=== PATIENT | male | born 1945 | race Caucasian/White ===

== ENCOUNTER 2024-06-07 23:51 | Emergency (ER) | payer MEDICARE ==
[~2024-06-07] VITALS: Ht 188 cm; Wt 90.7 kg
--- NOTE | 2024-06-08 00:21 | ERN ---
General Chief Complaint: Mechanical Fall Stated Complaint: FALL Time Seen by MD: 23:58 Source: patient History of Present Illness Initial Comments Patient fell from his bed today onto the floor and because of a history of back pain and previous falls family insisted he come to the emergency room. Did not hit his head he did not have loss of consciousness he is not on blood thinners Allergies: Coded Allergies: No Known Allergies (Unverified Allergy, Unknown, 06/07/24) Past Medical History Past Medical History: Other Medical History Other: LOW BACK PAIN Past Surgical History: None ROS Dictation Review of systems is negative there are no head pain no visual changes no lightheadedness no chest pain no shortness of breath no GI symptoms no symptoms no weakness or tenderness in any of his extremities. Skin is intact Physical Exam General Appearance: (+) no apparent distress Orientation: (+) oriented x 3 Eye: bilateral eye normal inspection, bilateral eye PERRL, bilateral eye EOMI Ear, Nose, Throat: (+) hearing grossly normal, (+) moist mucous membraine, (+) normal pharynx Neck: (+) normal inspection, (+) supple, (+) full range of motion Respiratory: (+) chest non-tender, (+) lungs clear, (+) well ventilated Heart: (+) regular, (+) no gallop Vascular: (+) no edema, (+) normal peripheral pulse Gastrointestinal: (+) soft, (+) non-tender, (+) no organomegaly, (+) bowel sound present Back Comment Patient has no back pain and no central spinal pain all the way from his neck down to the tip of his coccyx. Based on this exam the patient does not have a fracture anywhere along his vertebral chain. Extremities Comment Testing patient's sensation medial and laterally on his feet calves knees thighs both lower extremities are symmetrical and have sensation intact. MDM This patient can be medically cleared and discharged from the hospital emergency room. It was a low-level fall he did not hit his head he is not on blood thinners he has no mental status changes. His physical exam is negative. My big concern is that this is the 3rd fall the patient has had in the last year. He understands this he understands that he needs to work on conditioning and strengthening. There maybe some central spinal stenosis that is causing his lower extremity weakness however there was nothing emergent, i.e. no central cord syndrome and no decreased sensation anywhere. ED Course Vital Signs Date Time Temp Pulse Resp B/P (MAP) Pulse Ox O2 Delivery O2 Flow Rate FiO2 06/07/24 23:55 98.1 72 16 141/83 96 Room Air 0 DX & DISP Disposition: Discharge Departure Impression: Primary Impression: Ground-level fall Condition: Stable ARLEY ABERNATHY MD Jun 08, 2024 00:21
[2024-06-08 00:28] VITALS: BP 123/80; PULSE 71; RESP 12; TEMP 97.8; O2SAT 0
== END 2024-06-08 00:49 | disposition home or self-care (01) ==
LOC: EDH 06-08 00:04
DX: Z04.89 Encounter for examination and observation for other specified reasons (principal); W06.XXXA Fall from bed, initial encounter; Y93.89 Activity, other specified; Y92.89 Other specified places as the place of occurrence of the external cause; Y99.8 Other external cause status
CPT/HCPCS: 99283

== ENCOUNTER → 2024-09-04 | Outpatient (CLI) | payer MEDICARE ==
--- NOTE | 2024-09-05 09:51 | HMCIMG ---
EXAMINATION: SPECTRAL DOPPLER ULTRASOUND EXAMINATION OF THE RIGHT LOWER EXTREMITY VEINS. CLINICAL HISTORY: DVT. COMPARISON: None provided. TECHNIQUE: Real-time ultrasound scan of the veins of the right lower extremity with color Doppler flow, spectral waveform analysis and compression. FINDINGS: DEEP VEINS: The common femoral, mid and disstal superficial femoral, and popliteal veins are echolucent and compressible. There is normal color Doppler flow throughout. The visualized calf veins appear patent. The proximal superficial femoral vein is partially compressible. SUPERFICIAL VEINS: The greater saphenous veins is patent and compressible. SOFT TISSUES: No popliteal fossa cyst or other abnormalities. IMPRESSION: Partial deep vein thrombosis in the right proximal superficial femoral vein. No deep venous thrombosis evident in the remainder of right lower extremity. No superficial thrombophlebitis in the right lower extremity. /[place]
== END | disposition home or self-care (01) ==
LOC: RAH 08:57
PROVIDERS: ATTEND Internal Medicine
DX: I82.411 Acute embolism and thrombosis of right femoral vein (principal); I82.451 Acute embolism and thrombosis of right peroneal vein; D70.9 Neutropenia, unspecified
CPT/HCPCS: 93971

== ENCOUNTER 2024-09-21 12:21 | Inpatient (IN) | payer MEDICARE ==
[~2024-09-21] VITALS: Ht 188 cm; Wt 94.3 kg
[2024-09-21 14:17] LABS: NUCLEATED RED BLOOD CELLS 0.0 % (0.0-0.19); PLATELET COUNT (AUTO) 168 K/uL (130-400); RED BLOOD CELL COUNT(AUTO) 3.04 MIL/uL (4.50-6.20); RED CELL DISTRIBUTION WIDTH 12.3 % (11.0-15.5); WHITE BLOOD COUNT (AUTO) 5.7 K/uL (4.8-10.8)
[2024-09-21 14:29] LABS: INR 1.09 (0.85-1.15)
[2024-09-21 14:36] LABS: ASPARTATE AMINOTRANSFERASE 80.0 U/L (10-37); CREATININE 1.4 mg/dL (0.5-1.3); GLOMERULAR FILTR. RATE CALC 52.0 mL/min (>90); GLUCOSE,RANDOM 76.0 mg/dL (70-105); SODIUM SERUM 139.0 mmol/L (136-145); TOTAL PROTEIN, SERUM 7.2 g/dL (6.0-8.3); UREA NITROGEN, BLOOD 18.0 mg/dL (7-18)
--- NOTE | 2024-09-21 15:53 | NUR ---
DCP: HOME Pt currently lives with his partner Laura Parham [phone]. Pt does not have any insecurities with food, care home, and/or utilities. Pt has a walker and wheelchair that he uses to ambulate. Pt does not have home health or provider services. Pt states that he does have PT that goes to his home 2x a week. PCP is Dr. Jo Fontanez and uses [facility] for any RX needs. At [place] pt will want to go home and partner can assist with transportation. Addendum: 09/21/24 at 1558 by NIMA MULTANI Amended: Links added.
[2024-09-21 16:00] VITALS: BP 111/66; PULSE 74; RESP 13; TEMP 97.6
[2024-09-21] MEDS: MAGNESIUM 2GM PREMIX 50ML 50 ML IV SCH (16:30)
--- NOTE | 2024-09-21 19:19 | NUR ---
DR. LE AT BEDSIDE./DEVIKA
[2024-09-21] MEDS ORDERED: APIX2.5T PO (21:30)
[2024-09-21] MEDS ORDERED: FURO20TA4 PO (21:30)
[2024-09-21] MEDS ORDERED: BACL10TA PO (21:30)
[2024-09-21] MEDS ORDERED: FAMO40TA75 PO (21:30)
[2024-09-21] MEDS ORDERED: folic acid PO (21:30)
[2024-09-21] MEDS ORDERED: MECO10005 PO (21:30)
[2024-09-21] MEDS ORDERED: LISI2.5T13 PO (21:30)
[2024-09-21] MEDS: MAGNESIUM 2GM PREMIX 50ML 50 ML IV ONE (21:42)
[2024-09-21 22:46] VITALS: BP 158/96; PULSE 86; RESP 20; TEMP 98.2
[2024-09-21 23:00] VITALS: O2SAT 97
--- NOTE | 2024-09-22 02:51 | HMCIMG ---
EXAM: CR Chest, 1 view CLINICAL HISTORY: Congestive heart failure. COMPARISON: None provided. FINDINGS: The left CP angle is excluded from the image. No large pleural effusion or pneumothorax. The lungs show no infiltrates or other acute findings. Mild atherosclerotic aorta. The cardiomediastinal silhouette is within normal limits. No acute osseous abnormality. IMPRESSION: No acute cardiopulmonary process is evident. /[place]
[2024-09-22 04:00] VITALS: BP 136/76; PULSE 68; RESP 18; TEMP 97.7
[2024-09-22 08:00] VITALS: BP 112/66; PULSE 71; RESP 16; TEMP 98.5; O2SAT 98
[2024-09-22] MEDS: FAMOTIDINE 20MG TAB PO SCH (08:00)
[2024-09-22] MEDS: BACLOFEN 10 MG TABLET PO SCH (08:00)
[2024-09-22] MEDS: LISINOPRIL 2.5 MG TABLET PO SCH (08:00)
--- NOTE | 2024-09-22 09:27 | HP ---
DATE OF SERVICE: 09/21/2024. HISTORY AND PHYSICAL PRESENTING COMPLAINT: Bilateral leg swelling and lower extremitie pain. HISTORY OF PRESENT ILLNESS: A 79-year-old male with history of chronic back pain, obesity, skin cancer, and osteoarthritis who presented to the hospital from the doctor's office. The patient states he has been having chronic issue with back pain for a long time. Recently had radiofrequency procedure done in [place] and I have been seeing the patient since then. The pain is localized to the lumbar area, radiating to the lower extremities. The patient claims now he is almost wheelchair bound. Denies fever or chills. No fall or trauma. No frequent urinary retention. The patient denies nausea. Denies palpitations or orthopnea. The patient is unable to lie flat in bed. BNP was 122. Troponin is negative. The patient was found with magnesium of 0.80. PAST MEDICAL HISTORY: * Osteoarthritis. * Skin cancer. * Dyslipidemia. * GERD. * Chronic back pain. PAST SURGICAL HISTORY: * Right total hip arthroplasty. * Vasectomy. * Skin biopsy. * Lumbar laminectomy. * Radiofrequency procedure to the back. ALLERGIES: No known drug allergies. HOME MEDICATIONS: Reviewed. SOCIAL HISTORY: No alcohol, tobacco or illicit drug use. Lives with girlfriend. FAMILY HISTORY: Noncontributory. REVIEW OF SYSTEMS: CONSTITUTIONAL: No fever or chills. No weight loss or night sweats. EYES: No eye pain. No photophobia or diplopia. HENT: No sore throat. No rhinorrhea or earache. NECK: No neck pain. No neck swelling. RESPIRATORY: No cough. No hemoptysis or pleuritic pain. CARDIOVASCULAR: No chest pain. No palpitations or orthopnea. GASTROINTESTINAL: Denies nausea, vomiting, or abdominal pain. GENITOURINARY: No dysuria, urgency, or urinary frequency. CENTRAL NERVOUS SYSTEM: No headache, dyspnea, or slurred speech. PSYCHIATRY: No depression. No suicidal ideation. EXTREMITIES: Positive for bilateral lower extremities swelling and weakness. PHYSICAL EXAMINATION: GENERAL: Elderly male, awake. VITAL SIGNS: Temperature 97.4, pulse 74, respiratory rate 18, BP 129/81. EYES: No icterus. Pupils equal and reactive. HENT: No oral thrush seen. Moist oral mucosa. NECK: Supple. No JVD or thyromegaly. LUNGS: Good air entry. No rales. No rhonchi. CARDIOVASCULAR SYSTEM: S1 and S2 regular. No murmur heard. ABDOMEN: Obese, soft, nontender. Bowel sounds are present. CENTRAL NERVOUS SYSTEM: Awake, alert and oriented x 3. No focal deficits. EXTREMITIES: No rashes. No itchiness. LYMPHATIC: No peripheral lymphadenopathy. BACK: No deformity. No pressure ulcer. EXTREMITIES: Pitting edema of lower extremities. No cellulitis. LABORATORY DATA: BMP 122. Sodium 139, potassium 4.0, troponin 42. BUN 14, creatinine 1.4. Magnesium 0.80. WBC is 5.7, hemoglobin 11.4, platelets 168. ASSESSMENT: A 79-year-old male presented with back pain, leg swelling. CURRENT PROBLEMS: Include: * Possible lumbar radiculopathy. * Obesity. * Generalized weakness. * Lower extremity DVT PLAN: * Admit the patient to medical floor. * The patient will be placed on Lasix. * Obtain chest x-ray. * Obtain lumbar spine MRI. * Cardiology evaluation. * Lovenox for DVT prophylaxis. * Tylenol as need for fever or pain. * Tylenol as needed for pain and fever. * Zofran as needed for nausea and vomiting. TID: [id number] RECEIPT: [id number] MTDD
[2024-09-22 11:22] LABS: IMMATURE GRANULOCYTE ABSOLUTE 0.01 K/uL (0-1); NUCLEATED RED BLOOD CELLS 0.0 % (0.0-0.19); PLATELET COUNT (AUTO) 135 K/uL (130-400); RED BLOOD CELL COUNT(AUTO) 2.52 MIL/uL (4.50-6.20); RED CELL DISTRIBUTION WIDTH 12.0 % (11.0-15.5); WHITE BLOOD COUNT (AUTO) 3.9 K/uL (4.8-10.8)
[2024-09-22 11:25] LABS: CREATININE 1.2 mg/dL (0.5-1.3); GLOMERULAR FILTR. RATE CALC 62.0 mL/min (>90); GLUCOSE,RANDOM 124.0 mg/dL (70-105); SODIUM SERUM 140.0 mmol/L (136-145); UREA NITROGEN, BLOOD 21.0 mg/dL (7-18)
[2024-09-22 12:00] VITALS: BP 107/66; PULSE 71; RESP 18; TEMP 98.4
--- NOTE | 2024-09-22 12:35 | HMCSR ---
APPROVED REPORT EXAM: Two-dimensional and M-mode echocardiogram with Doppler and color Doppler. INDICATION ICD: Congestive heart failure 2D Dimensions RVDd4.4 cmLVEF(%)54.8 (>50%)LVED Vol(simp.)83.0 mL IVSd1.2 (0.7-1.1cm)FS(%)28 %LVES Vol(simp.)39.0 mL LVDd4.8 (3.8-5.6cm)LA (2D)4.9 (1.6-4.0cm)LVEF(%, simp.)53 % PWd1.3 (0.7-1.1cm)Ao Root(2D)3.7 (2.0-3.7cm)LA ESV INDEX (BP)43.48 mL/m2 IVSs1.3 cmLVOT diam2.6 (1.8-2.4cm) LVDs3.4 (2.5-4.0cm) PWs1.8 cm Deformation Strain Apical 4-13.7 % Apical 2-11.6 % Apical 3-19.7 % Global Strain-15.0 % M-Mode Dimensions EPSS0.7 cm LA (MM)4.6 (1.6-4.0cm) Ao Root(MM)3.3 (2.0-3.7cm) Aortic Valve AoV Vmax1.2 m/Kobi Peak GR5.9 mmHgLVOT Vmax1.0 m/s AoV VTI0.2 mAo Mean GR3.2 mmHgLVOT VTI0.20 m LARRY (VMAX)4.34 cm2AVA (VTI) 6.0 cm2 Mitral Valve MV E Vmax54.4 cm/sDECEL Qzcg391 ms MV A Vmax74.7 cm/sP 1/2 T48 ms E/A ratio0.7MVA (PHT)4.6 cm2 TDI E/E' Medial8.8E/E' Lateral4.5 Medial E' Peak V6.19 cm/sLateral E' Peak V12.14 cm/s Pulmonary Valve PV Vmax1.2 m/sPV VTI0.19 mPV Mean GR3.3 mmHg PV Peak GR6.1 mmHg Tricuspid Valve TR Vmax1.1 m/sRVSP4.6 mmHg TR Peak GR4.6 mmHg Left Ventricle The left ventricle is normal size. GLS -15.0% Septal bounce is present. Mild left ventricular hypertr ophy LVEF is 50-55%. Diastolic function is indeterminate. Right Ventricle The right ventricle is normal size. The right ventricular systolic function is normal. Atria The left atrium is moderately dilated. The right atrium size is normal. Aortic Valve Aortic valve is trileaflet and calcified however opens well. Trace aortic regurgitation is present. T here is no aortic valvular stenosis. Mitral Valve The mitral valve is normal in structure. There is no mitral valve regurgitation noted. There is no mi tral valve stenosis. Tricuspid Valve The tricuspid valve is normal in structure. There is trace of tricuspid valve regurgitation noted. Pulmonic Valve Pulmonic valve is not well visualized. There is trivial pulmonic valvular regurgitation. Great Vessels The aortic root is normal in size. IVC is not well visualized. Pericardium There is no pericardial effusion. Other Information Quality : Technically difficult study due to body habitus Rhythm : NSR Conclusion LVEF is 50-55%. Diastolic function is indeterminate. Septal bounce is present. Mild left ventricular hypertrophy Left atrium is moderately dilated. Aortic valve is trileaflet and calcified however opens well.
[2024-09-22 16:00] VITALS: BP 105/70; PULSE 81; RESP 18; TEMP 98.4
--- NOTE | 2024-09-22 17:47 | PN ---
INFECTIOUS DISEASE PROGRESS NOTE Date of Service: Sep 22, 2024 SUBJECTIVE: This is a 79-year-old male patient with past medical history of osteoarthritis and chronic back pain who was sent over from his PCP's office for evaluation of bilateral lower extremity swelling, pain and redness as well as lower back pain. On admission patient had a magnesium level of 0.80 which was replaced and is now 2.20. During rounding today patient is pending an MRI of the lumbar spine. A 2D echo showed a LVEF of 50-55%. Patient is afebrile, temperature is 98.4. Discussed with patient that he will possibly need temporary rehab placement when ready to discharge and patient verbalized understanding. PHYSICAL EXAM EYES: Anicteric. Pupils equal and reactive. HENT: No oral thrush seen, moist Oral mucosa. NECK: Supple, no JVD or thyromegaly. LUNGS: Good air entry. No rales, no rhonchi. CARDIOVASCULAR: S1, S2 regular. No murmur heard. ABDOMEN: Soft, non tender, bowel sounds present, no organomegaly. CENTRAL NERVOUS SYSTEM: Awake, alert, oriented x 3. SKIN: No rashes, no swelling. LYMPHATICS: No peripheral lymphadenopathy MUSCULOSKELETAL: No joint swelling, erythema or tenderness. EXTREMITIES: No cyanosis or clubbing. Bilateral lower extremity edema and cellulitis. BACK: No deformity, no pressure ulcer. Chronic back pain. GENITOURINARY: No dysuria or hematuria Vital Sign (Last 12 Hours) 09/22/24 09/22/24 09/22/24 08:00 08:00 12:00 Temp 98.4 98.4 Pulse 71 71 Resp 16 18 B/P (MAP) 112/66 107/66 Pulse Ox 99 98 96 O2 Delivery Room Air Room Air* Room Air O2 Flow Rate 0 FiO2 21 Intake & Output (last 24hrs) 09/21/24 09/21/24 09/22/24 15:00 23:00 07:00 Output Total 350 ml 250 ml Balance -350 ml -250 ml LABS: Laboratory: Test 09/22/24 11:01 09/21/24 14:10 Range/Units White Blood Count 3.9 #L 4.8-10.8 K/uL Red Blood Count 2.52 L 4.50-6.20 MIL/uL Hemoglobin 9.6 L 14.0-18.0 g/dL Hematocrit 27.5 L 42-54 % Mean Corpuscular Volume 109.1 H 79-99 fL Mean Corpuscular Hemoglobin 38.1 H 27.0-33.0 pg Mean Corpuscular Hemoglobin Concent 34.9 32.0-36.0 g/dL Red Cell Distribution Width 12.0 11.0-15.5 % Platelet Count 135 130-400 K/uL Mean Platelet Volume 10.9 H 7.5-10.5 fL Immature Granulocyte % (Auto) 0.3 0-1 % Neutrophils (%) (Auto) 70.1 40.0-77.0 % Lymphocytes (%) (Auto) 19.8 L 21.0-51.0 % Monocytes (%) (Auto) 9.5 3.0-13.0 % Eosinophils (%) (Auto) 0.0 0.0-8.0 % Basophils (%) (Auto) 0.3 0.0-5.0 % Neutrophils # (Auto) 2.7 1.8-7.7 K/uL Lymphocytes # (Auto) 0.8 L 1.0-4.8 K/uL Monocytes # (Auto) 0.4 0.1-1.0 K/uL Eosinophils # (Auto) 0.00 0.00-0.70 K/uL Basophils # (Auto) 0.01 0.00-0.20 K/uL Absolute Immature Granulocyte (auto 0.01 0-1 K/uL Nucleated Red Blood Cells 0.0 0.0-0.19 % Sodium Level 140 136-145 mmol/L Potassium Level 4.0 3.5-5.1 mmol/L Chloride Level 102 101-111 mmol/L Carbon Dioxide Level 31 21-32 mmol/L Blood Urea Nitrogen 21 H 7-18 mg/dL Creatinine 1.2 0.5-1.3 mg/dL Glomerular Filtration Rate Calc 62 >90 mL/min Random Glucose 124 #H 70-105 mg/dL Total Calcium 8.6 8.5-10.1 mg/dL Magnesium Level 2.20 1.80-2.40 mg/dL Red Blood Cell Morphology See comments Prothrombin Time 11.5 9.6-11.6 SEC Prothromb Time International Ratio 1.09 0.85-1.15 Activated Partial Thromboplast Time 28.0 26.3-35.5 SEC Total Bilirubin 0.8 0.2-1.0 mg/dL Aspartate Amino Transf (AST/SGOT) 80 H 10-37 U/L Alanine Aminotransferase (ALT/SGPT) 74 12-78 U/L Alkaline Phosphatase 114 50-136 U/L Troponin I High Sensitivity 42 4-75 ng/L B-Type Natriuretic Peptide 122 H 0-100 pg/mL Total Protein 7.2 6.0-8.3 g/dL Albumin 3.7 3.5-5.0 g/dL ASSESSMENT: Bilateral lower extremity edema with cellulitis. Possible lumbar radiculopathy. Obesity. History of chronic back pain. PLAN: Obtain bilateral venous Dopplers. Pending MRI of the lumbar spine. Continue DVT prophylaxis. Continue diuretics. Continue pain management. We will monitor electrolytes. Will possibly need temporary rehab placement when ready to discharge This case was reviewed and discussed with my supervising physician and the above assessment and plan was formulated and agreed upon. ATTESTATION BY PHYSICIAN I have seen and examined the patient. I reviewed the documentation, medical decision making, and treatment plan as noted by the mid-level provider above. I agree with the findings and plan of care. TAWANDA LE MD, [facility] Sep 22, 2024 17:47
--- NOTE | 2024-09-22 19:39 | CONS ---
CARDIOLOGY CONSULT HPI 79-year-old male with history of chronic back pain, obesity, skin cancer, and osteoarthritis recent dvt to right leg about 3 weeks ago was started on eliquis by hematology The patient states he has been having chronic issue with back pain for a long time. Recently had radiofrequency procedure done in [place] and I have been seeing the patient since then. The pain is localized to the lumbar area, radiating to the lower extremities. The patient claims now he is almost wheelchair bound. we have been consulted for conser of chf pmhx: as mentions above social history no tobacco no alcohol use surgical history non contributory Vitals/Labs ROS: General: No malaise or fever. Neurological: No fainting episodes or seizures. HEENT: No nasal congestion or nasal secretion. Cardiac: No chest pain or palpitations, +bilateral lower ext edema . Gastrointestinal: No vomiting or diarrhea. Skin: No rashes or lesions. Hematological: No bruises or bleeding. Musculoskeletal: No joint pains or arthralgias +back pain . Psychiatric: No depression or panic attacks. PE EYES: Anicteric. Pupils equal and reactive. HENT: No oral thrush seen, moist Oral mucosa. NECK: Supple, no JVD or thyromegaly. LUNGS: Good air entry. No rales, no rhonchi. CARDIOVASCULAR: S1, S2 regular. No murmur heard. ABDOMEN: Soft, non tender, bowel sounds present, no organomegaly. CENTRAL NERVOUS SYSTEM: Awake, alert, oriented x 3. SKIN: No rashes, no swelling. LYMPHATICS: No peripheral lymphadenopathy MUSCULOSKELETAL: No joint swelling, erythema or tenderness. EXTREMITIES: No cyanosis or clubbing. Bilateral lower extremity edema and cellulitis. BACK: No deformity, no pressure ulcer. Chronic back pain. GENITOURINARY: No dysuria or hematuria Vital Signs Date Time Temp Pulse Resp B/P (MAP) Pulse Ox O2 Delivery O2 Flow Rate FiO2 09/22/24 16:00 98.4 81 18 105/70 95 Room Air 09/22/24 08:00 0 21 Laboratory Tests 09/22/24 11:01 Allergies: Coded Allergies: No Known Allergies (Unverified Allergy, Unknown, 06/07/24) Medications Current Medications Magnesium Sulfate 50 ml @ 0 mls/hr PROTOCOL IV Last administered on 09/21/24at 18:53; Start 09/21/24 at 16:30; Stop 10/21/24 at 16:29 Tramadol HCl 50 mg Q6H PRN PO Last administered on 09/22/24at 17:42; Start 09/21/24 at 20:00; Stop 09/26/24 at 19:59 Docusate Sodium 100 mg BID PO Last administered on 09/22/24at 08:00; Start 09/21/24 at 21:00; Stop 09/28/24 at 21:00 Magnesium Sulfate 50 ml @ 0 mls/hr PROTOCOL ONCE IV Last administered on 09/21/24at 21:42; Start 09/21/24 at 20:00; Stop 09/21/24 at 20:02; Status DC Ondansetron HCl 4 mg Q6H PRN IVP Last administered on 09/22/24at 08:00; Start 09/21/24 at 23:30; Stop 10/21/24 at 23:29 Apixaban 2.5 mg BID PO Last administered on 09/22/24at 08:00; Start 09/22/24 at 09:00; Stop 10/22/24 at 08:59 Baclofen 10 mg BID PO Last administered on 09/22/24at 08:00; Start 09/22/24 at 09:00; Stop 10/22/24 at 08:59 Famotidine 40 mg DAILY PO Last administered on 09/22/24at 08:00; Start 09/22/24 at 09:00; Stop 10/22/24 at 08:59 Furosemide 20 mg BID PO Last administered on 09/22/24at 08:00; Start 09/22/24 at 09:00; Stop 10/22/24 at 08:59 Lisinopril 2.5 mg DAILY PO Last administered on 09/22/24at 08:00; Start 09/22/24 at 09:00; Stop 10/22/24 at 08:59 ASSESSMENT: 1. concern for heart failure 2. 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 recent dvt to right leg 5. chronic [facility] pain PLAN: From a cardiovascular standpoint we will do echo to assess pt ef venous us was order to assess the dvt at this time no indication for cadx work up if ef on echo shows lv dysfunction we will reconsider the same. further recommendations will be bases on how the patient does and the results above DAT HOPKINS PAC Sep 22, 2024 19:39
[2024-09-22 20:19] VITALS: BP 114/71; PULSE 71; RESP 20; TEMP 98.3
--- NOTE | 2024-09-22 20:53 | HMCIMG ---
EXAM: MR Lumbar Spine Without Intravenous Contrast. CLINICAL HISTORY: Low back pain. TECHNIQUE: Magnetic resonance images of the lumbar spine in multiple planes. CONTRAST: None. COMPARISON: None. FINDINGS: For this examination, spinal levels were labeled assuming five non-rib bearing, lumbar-type vertebrae with the inferior labeled L5. Suspected right L3 laminectomy. No acute fracture. Severe levoscoliosis. Straightening of the expected lumbar lordosis reflects paraspinal muscle spasm. Multilevel spondylosis is evident by marginal osteophytes and facet joint arthropathy. Multilevel disc desiccation and degenerative disc height reduction noted, more pronounced at the L5-S1 level. Normal vertebral body heights. Modic type II changes in the contiguous endplates at the L1-L2 and L2-L3 levels. Conus medullaris terminates at the T12 level. No abnormal epidural masses. Moderate atrophy of the paraspinal muscles. Mild subcutaneous edema in the lower back. Large simple cortical cysts noted in bilateral kidneys. Individual spinal levels are described as follows: T12-L1: 4 mm left predominant disc osteophyte complex bulge causing mild indentation on the anterior thecal sac. No neural foraminal or lateral recess stenosis. L1-L2: 4 mm left predominant disc osteophyte complex bulge causing mild indentation on the anterior thecal sac. No neural foraminal or lateral recess stenosis. L2-L3: 4 mm right predominant disc osteophyte complex bulge and facet joint arthropathy causing mild indentation on the anterior thecal sac and mild right foraminal narrowing. No lateral recess stenosis. L3-L4: 5 mm right predominant disc osteophyte complex bulge and facet joint arthropathy causing mild indentation on the anterior thecal sac and moderate right foraminal narrowing with compression of the exiting right L3 nerve root. No lateral recess stenosis. L4-L5: 5 mm left predominant disc osteophyte complex bulge and facet joint arthropathy causing mild indentation on the anterior thecal sac, mild bilateral lateral recess narrowing with abutment of the traversing left L5 nerve root, and mild left foraminal narrowing. L5-S1: 5 mm left predominant disc osteophyte complex bulge and facet joint arthropathy causing mild indentation on the anterior thecal sac, mild left lateral recess narrowing with abutment of the traversing left S1 nerve root, and mild left foraminal narrowing with abutment of the exiting left L5 nerve root. IMPRESSION: Suspected right L3 laminectomy. Recommend correlation with the history. Severe levoscoliosis. Straightening of the expected lumbar lordosis reflects paraspinal muscle spasm. Moderate to severe multilevel spondylosis and degenerative disc changes. Modic type II changes in the contiguous endplates at the L1-L2 and L2-L3 levels. Mild indentation on the anterior thecal sac and moderate right foraminal narrowing with compression of the exiting right L3 nerve root at the L3-L4 level. Mild indentation on the anterior thecal sac, mild bilateral lateral recess narrowing with abutment of the traversing left L5 nerve root, and mild left foraminal narrowing at the L4-L5 level. Mild indentation on the anterior thecal sac, mild left lateral recess narrowing with abutment of the traversing left S1 nerve root, and mild left foraminal narrowing with abutment of the exiting left L5 nerve root at the L5-S1 level. /[place]
[2024-09-23] VITALS (8 sets, daily range): BP systolic 113–133; BP diastolic 66–79; PULSE 60–72; RESP 16–20; TEMP 97.7–98.5; O2SAT 96–100
--- NOTE | 2024-09-23 07:02 | HMCIMG ---
EXAMINATION: SPECTRAL DOPPLER ULTRASOUND EXAMINATION OF THE BILATERAL LOWER EXTREMITY VEINS. CLINICAL HISTORY: Right leg DVT, on blood thinners. COMPARISON: Bilateral lower extremity venous doppler dated 09/04/2024. TECHNIQUE: Real-time ultrasound scan of the veins of the bilateral lower extremity with color Doppler flow, spectral waveform analysis and compression. FINDINGS: DEEP VEINS: Right: The common femoral and mid and distal superficial femoral veins are echolucent and compressible. There is normal color Doppler flow throughout. The visualized calf veins appear patent. The right proximal superficial femoral and popliteal veins are partially compressible with echogenic content. There is flow on augmentation. Left: The common femoral, superficial femoral, and popliteal veins are echolucent and compressible. There is normal color Doppler flow throughout. The visualized calf veins appear patent. SUPERFICIAL VEINS: The greater saphenous veins are patent and compressible. SOFT TISSUES: No popliteal fossa cyst or other abnormalities. IMPRESSION: Partial deep vein thrombosis in the right proximal superficial femoral and popliteal veins. In the prior ultrasound, there was thrombosis only in the superficial femoral vein. Interval appearance of partial thrombosis in the popliteal vein. No deep venous thrombosis evident in the reminder of the bilateral lower extremity.No superficial thrombophlebitis in the bilateral lower extremity. /[place]
--- NOTE | 2024-09-23 15:15 | PN ---
INFECTIOUS DISEASE PROGRESS NOTE Date of Service: Sep 23, 2024 SUBJECTIVE: This 79 year old male patient is being seen today at bedside. Awake, alert and oriented x3. With no fever or chills, no nausea or vomiting. MRI was reviewed and went over results with patient and family. Consult to [facility] has been made for recommendations. Orders given for patient to be evaluated by PT today. Patient at this time denies chest pain or shortness of breath. Denies palpitation. No dysuria or hematuria. We continue to follow patient. PHYSICAL EXAM EYES: Anicteric. Pupils equal and reactive. HENT: No oral thrush seen, moist Oral mucosa. NECK: Supple, no JVD or thyromegaly. LUNGS: Good air entry. No rales, no rhonchi. CARDIOVASCULAR: S1, S2 regular. No murmur heard. ABDOMEN: Soft, non tender, bowel sounds present, no organomegaly. CENTRAL NERVOUS SYSTEM: Awake, alert, oriented x 3. SKIN: No rashes, no swelling. LYMPHATICS: No peripheral lymphadenopathy MUSCULOSKELETAL: No joint swelling, erythema or tenderness. EXTREMITIES: No cyanosis or clubbing. Bilateral lower extremity edema and cellulitis. BACK: No deformity, no pressure ulcer. Chronic back pain. GENITOURINARY: No dysuria or hematuria Vital Sign (Last 12 Hours) 09/23/24 09/23/24 09/23/24 09/23/24 04:05 07:53 08:11 11:34 Temp 97.9 97.7 97.9 Pulse 63 64 60 Resp 18 20 20 B/P (MAP) 133/79 129/78 118/76 Pulse Ox 95 100 100 100 O2 Delivery Room Air Room Air Room Air* Room Air O2 Flow Rate 0 FiO2 21 Intake & Output (last 24hrs) 09/22/24 09/22/24 09/23/24 15:00 23:00 07:00 Intake Total 120 ml Output Total 200 ml Balance -80 ml LABS: Laboratory: Test 09/22/24 11:01 Range/Units White Blood Count 3.9 #L 4.8-10.8 K/uL Red Blood Count 2.52 L 4.50-6.20 MIL/uL Hemoglobin 9.6 L 14.0-18.0 g/dL Hematocrit 27.5 L 42-54 % Mean Corpuscular Volume 109.1 H 79-99 fL Mean Corpuscular Hemoglobin 38.1 H 27.0-33.0 pg Mean Corpuscular Hemoglobin Concent 34.9 32.0-36.0 g/dL Red Cell Distribution Width 12.0 11.0-15.5 % Platelet Count 135 130-400 K/uL Mean Platelet Volume 10.9 H 7.5-10.5 fL Immature Granulocyte % (Auto) 0.3 0-1 % Neutrophils (%) (Auto) 70.1 40.0-77.0 % Lymphocytes (%) (Auto) 19.8 L 21.0-51.0 % Monocytes (%) (Auto) 9.5 3.0-13.0 % Eosinophils (%) (Auto) 0.0 0.0-8.0 % Basophils (%) (Auto) 0.3 0.0-5.0 % Neutrophils # (Auto) 2.7 1.8-7.7 K/uL Lymphocytes # (Auto) 0.8 L 1.0-4.8 K/uL Monocytes # (Auto) 0.4 0.1-1.0 K/uL Eosinophils # (Auto) 0.00 0.00-0.70 K/uL Basophils # (Auto) 0.01 0.00-0.20 K/uL Absolute Immature Granulocyte (auto 0.01 0-1 K/uL Nucleated Red Blood Cells 0.0 0.0-0.19 % Sodium Level 140 136-145 mmol/L Potassium Level 4.0 3.5-5.1 mmol/L Chloride Level 102 101-111 mmol/L Carbon Dioxide Level 31 21-32 mmol/L Blood Urea Nitrogen 21 H 7-18 mg/dL Creatinine 1.2 0.5-1.3 mg/dL Glomerular Filtration Rate Calc 62 >90 mL/min Random Glucose 124 #H 70-105 mg/dL Total Calcium 8.6 8.5-10.1 mg/dL Magnesium Level 2.20 1.80-2.40 mg/dL COMPARISON: None. FINDINGS: For this examination, spinal levels were labeled assuming five non-rib bearing, lumbar-type vertebrae with the inferior labeled L5. Suspected right L3 laminectomy. No acute fracture. Severe levoscoliosis. Straightening of the expected lumbar lordosis reflects paraspinal muscle spasm. Multilevel spondylosis is evident by marginal osteophytes and facet joint arthropathy. Multilevel disc desiccation and degenerative disc height reduction noted, more pronounced at the L5-S1 level. Normal vertebral body heights. Modic type II changes in the contiguous endplates at the L1-L2 and L2-L3 levels. Conus medullaris terminates at the T12 level. No abnormal epidural masses. Moderate atrophy of the paraspinal muscles. Mild subcutaneous edema in the lower back. Large simple cortical cysts noted in bilateral kidneys. Individual spinal levels are described as follows: T12-L1: 4 mm left predominant disc osteophyte complex bulge causing mild indentation on the anterior thecal sac. No neural foraminal or lateral recess stenosis. L1-L2: 4 mm left predominant disc osteophyte complex bulge causing mild indentation on the anterior thecal sac. No neural foraminal or lateral recess stenosis. L2-L3: 4 mm right predominant disc osteophyte complex bulge and facet joint arthropathy causing mild indentation on the anterior thecal sac and mild right foraminal narrowing. No lateral recess stenosis. L3-L4: 5 mm right predominant disc osteophyte complex bulge and facet joint arthropathy causing mild indentation on the anterior thecal sac and moderate right foraminal narrowing with compression of the exiting right L3 nerve root. No lateral recess stenosis. L4-L5: 5 mm left predominant disc osteophyte complex bulge and facet joint arthropathy causing mild indentation on the anterior thecal sac, mild bilateral lateral recess narrowing with abutment of the traversing left L5 nerve root, and mild left foraminal narrowing. L5-S1: 5 mm left predominant disc osteophyte complex bulge and facet joint arthropathy causing mild indentation on the anterior thecal sac, mild left lateral recess narrowing with abutment of the traversing left S1 nerve root, and mild left foraminal narrowing with abutment of the exiting left L5 nerve root. IMPRESSION: Suspected right L3 laminectomy. Recommend correlation with the history. Severe levoscoliosis. Straightening of the expected lumbar lordosis reflects paraspinal muscle spasm. Moderate to severe multilevel spondylosis and degenerative disc changes. Modic type II changes in the contiguous endplates at the L1-L2 and L2-L3 levels. Mild indentation on the anterior thecal sac and moderate right foraminal narrowing with compression of the exiting right L3 nerve root at the L3-L4 level. Mild indentation on the anterior thecal sac, mild bilateral lateral recess narrowing with abutment of the traversing left L5 nerve root, and mild left foraminal narrowing at the L4-L5 level. Mild indentation on the anterior thecal sac, mild left lateral recess narrowing with abutment of the traversing left S1 nerve root, and mild left foraminal narrowing with abutment of the exiting left L5 nerve root at the L5-S1 level. /[place] EXAMINATION: SPECTRAL DOPPLER ULTRASOUND EXAMINATION OF THE BILATERAL LOWER EXTREMITY VEINS. CLINICAL HISTORY: Right leg DVT, on blood thinners. COMPARISON: Bilateral lower extremity venous doppler dated 09/04/2024. TECHNIQUE: Real-time ultrasound scan of the veins of the bilateral lower extremity with color Doppler flow, spectral waveform analysis and compression. FINDINGS: DEEP VEINS: Right: The common femoral and mid and distal superficial femoral veins are echolucent and compressible. There is normal color Doppler flow throughout. The visualized calf veins appear patent. The right proximal superficial femoral and popliteal veins are partially compressible with echogenic content. There is flow on augmentation. Left: The common femoral, superficial femoral, and popliteal veins are echolucent and compressible. There is normal color Doppler flow throughout. The visualized calf veins appear patent. SUPERFICIAL VEINS: The greater saphenous veins are patent and compressible. SOFT TISSUES: No popliteal fossa cyst or other abnormalities. IMPRESSION: Partial deep vein thrombosis in the right proximal superficial femoral and popliteal veins. In the prior ultrasound, there was thrombosis only in the superficial femoral vein. Interval appearance of partial thrombosis in the popliteal vein. No deep venous thrombosis evident in the reminder of the bilateral lower extremity.No superficial thrombophlebitis in the bilateral lower extremity. ASSESSMENT: Bilateral lower extremity edema with cellulitis. Possible lumbar radiculopathy. Obesity. History of chronic back pain. PLAN: Patient be seen by PT Consult neurosurgery Consult hematology from prior hx of dvt Continue DVT prophylaxis. Continue diuretics. Continue pain management. We will monitor electrolytes. Will possibly need temporary rehab placement when ready to discharge This case was reviewed and discussed with my supervising physician and the above assessment and plan was formulated and agreed upon. SHAI MONDRAGON ENVIRONMENTAL AIDE Sep 23, 2024 15:14
--- NOTE | 2024-09-23 17:59 | CONS ---
REASON FOR CONSULTATION: Right lower extremity DVT. CONSULT REQUESTED BY: Alon Morales MD HISTORY OF PRESENT ILLNESS: This is a 79-year-old male with multiple medical problems and those include severe back problems for which he has undergone previous surgery and recently radiofrequency ablation. They came to the hospital for that and also due to lower extremity edema bilaterally. The patient has been just recently diagnosed with DVT by Dr. Urban. He is taking Eliquis. This is the reason why I have been consulted. PAST MEDICAL HISTORY: Obesity, skin cancer, osteoarthritis, hyperlipidemia, GERD, spondylosis, severe back problems. PAST SURGICAL HISTORY: Right hip arthroplasty, vasectomy, skin biopsy, lumbar laminectomy, radiofrequency ablation of the back. SOCIAL HISTORY: The patient lives with his family. He does not smoke or drink. He in fact lives with a girlfriend. ALLERGIES: No drug allergies. REVIEW OF SYSTEMS: GENERAL: Energy is fair. Denies fatigue or weakness. No chills, no fever, no anorexia. GASTROINTESTINAL: No nausea, no vomiting, no diarrhea, no constipation. RESPIRATORY: No shortness of breath, no cough. CARDIOVASCULAR: No chest pain, no palpitations. ENDOCRINE: No polyuria, no polydipsia, no facial swelling, no weight gain. NEUROLOGIC: Severe back pain as described above. PHYSICAL EXAMINATION: VITAL SIGNS: Temperature 97.9, heart rate 60, respiratory rate 20, blood pressure 118/76. GENERAL: The patient is in no acute distress. All examination is normal. LUNGS: Clear to auscultation bilaterally. HEART: Regular rate. No murmurs. ABDOMEN: Bowel sounds positive, soft, nontender. No masses. EXTREMITIES: Mild edema 1+. No palpable lymph nodes. DOPPLER ULTRASOUND OF LOWER EXTREMITIES: Impression: Partial deep vein thrombosis in the right proximal superficial femoral and popliteal veins. In the prior ultrasound, there was thrombosis only in the superficial femoral vein, interval appearance of partial thrombosis in the popliteal vein. No deep venous thrombosis evident in the remainder of the bilateral lower extremities. No superficial thrombophlebitis in bilateral lower extremities. IMPRESSION: * This patient has the recent diagnosis approximately 10 days ago of right lower extremity DVT. The risk factors for that are several, but mostly is the relative immobility due to his severe back problems, but also obesity and age are risk factors. * He started anticoagulation with Eliquis and there is concern of progression of the clot. * At this time, I noticed he is having subtherapeutic dose of Eliquis 2.5 mg q.12 hours. He thought he was taking 5 mg, and in fact, he previously took 10 mg b.i.d. for 7 days. PLAN: The findings were discussed with the patient and the girlfriend. I placed an order for the Eliquis dose to be increased to 5 mg q.12 hours. TID: [id number] RECEIPT: [id number]
[2024-09-24] VITALS (9 sets, daily range): BP systolic 112–149; BP diastolic 65–88; PULSE 66–90; RESP 17–19; TEMP 97.7–98.6; O2SAT 96
--- NOTE | 2024-09-24 13:53 | PN ---
SUBJECTIVE: The patient is feeling fine today. Denies any complaints of chest pain or shortness of breath. OBJECTIVE: VITAL SIGNS: Heart rate is 70, blood pressure is 120/60. HEENT: Normocephalic and atraumatic. Pupils are equal and reactive to light. NECK: Supple. No thyromegaly. No carotid bruits. No masses. LUNGS: Clear to percussion and auscultation. CARDIOVASCULAR: Peripheral pulses are diminished. No groin bruit. No abdominal bruit. No carotid bruit or JVD. S1 and S2 heard. No S3, no S4. No murmurs, no rubs, no adventitious sounds. ABDOMEN: Benign. CENTRAL NERVOUS SYSTEMS: Nonfocal exam. EXTREMITIES: No pitting edema. LABORATORY DATA: Labs have all been reviewed. DIAGNOSTIC STUDIES: Echocardiogram reveals normal ejection fraction with diastolic dysfunction. A venous Doppler reveals right SFA thrombosis. FINAL IMPRESSION: * Diastolic CHF, which is now resolved. He is on p.o. Lasix. * Normal ejection fraction. * DVT, right lower extremity. The patient is on full dose anticoagulation, oral. RECOMMENDATIONS: * We will continue the same medications. His blood pressure has been controlled. He is on Lasix p.o. * I will also schedule Lexiscan on him for tomorrow. Further recommendations will be based on results of the above. TID: [id number] RECEIPT: [id number]
[2024-09-25 03:40] VITALS: BP 125/94; PULSE 73; RESP 18; TEMP 97.9
[2024-09-25 05:42] LABS: CREATININE 1.1 mg/dL (0.5-1.3); GLOMERULAR FILTR. RATE CALC 69.0 mL/min (>90); GLUCOSE,RANDOM 78.0 mg/dL (70-105); SODIUM SERUM 139.0 mmol/L (136-145); UREA NITROGEN, BLOOD 14.0 mg/dL (7-18)
[2024-09-25 06:05] LABS: NUCLEATED RED BLOOD CELLS 0.0 % (0.0-0.19); PLATELET COUNT (AUTO) 117.0 K/uL (130-400); RED BLOOD CELL COUNT(AUTO) 2.7 MIL/uL (4.50-6.20); RED CELL DISTRIBUTION WIDTH 12.2 % (11.0-15.5); WHITE BLOOD COUNT (AUTO) 3.3 K/uL (4.8-10.8)
[2024-09-25] MEDS: PoTASSium chloRIDE 20MEQ ER 20 MEQ ERTAB PO PRN (06:22)
[2024-09-25 08:00] VITALS: O2SAT 100
[2024-09-25 08:05] VITALS: BP 139/75; PULSE 64; RESP 20; TEMP 98.4
--- NOTE | 2024-09-25 08:45 | HMCIMG ---
EXAMINATION: ULTRASOUND OF THE ABDOMEN (LIMITED) WITH COLOR DOPPLER. CLINICAL HISTORY: Swelling in legs. Pain. COMPARISON: None. TECHNIQUE: Real-time grayscale ultrasound images of the abdomen. In addition, color Doppler is medically necessary to perform in order to evaluate vascularity and blood flow. FINDINGS: Liver: Bulky in caliber, the right hepatic lobe measures 18.5 cm in the craniocaudal dimension. There is increased echogenicity of the hepatic parenchyma. There is no focal hepatic abnormality or intrahepatic biliary ductal dilatation. There is normal spectral Doppler of the main portal vein (PSV is 17 cm/s). The left lobe is obscured by overlying bowel gas. Gallbladder: Within normal limits with normal wall thickness (0.2 cm). No hyperemia or pericholecystic free fluid. There is no cholelithiasis. Common bile duct is obscured by overlying bowel gas. Pancreas: Obscured by overlying bowel gas. The right kidney is normal in caliber, the right kidney measures 11.2 x 4.1 x 3.8 cm in craniocaudal, AP, and transverse dimensions respectively. There is normal renal cortical thickness, and cortical echogenicity. There is no renal calculus or hydronephrosis. There is a simple cortical cyst that measures 4.8 x 4.2 x 4.1 cm in the right renal mid pole. IMPRESSION: Hepatomegaly with hepatic steatosis. Right renal simple cortical cyst. /[place]
[2024-09-25] MEDS: FAMOTIDINE 20MG TAB PO SCH (09:00)
[2024-09-25] MEDS: REGADENOSON 0.4 MG/5 ML PF SYG IVP ONE (09:47)
[2024-09-25 11:22] VITALS: BP 137/92; PULSE 82; RESP 20; TEMP 97.9
--- NOTE | 2024-09-25 16:19 | PN ---
PROGRESS NOTE Date of Service: Sep 25, 2024 Time of Service: 15:53 SUBJECTIVE: This is a 79-year-old male medical problem had come to the hospital due to lower extremity edema bilaterally. The patient has been just recently diagnosed with DVT by Dr. Crenshaw. Patient is currently on Eliquis 5 mg p.o. b.i.d.. No acute events overnight. His bilateral lower extremity swelling have improved. Denies fever, abdominal pain, nausea or vomiting. Patient underwent Lexiscan stress test today. His vitals have been stable. CBC is remarkable for pancytopenia with WBC 3.3, RBC 2.70, hemoglobin 10.1, platelet count 117. Peripheral blood smear did not show any hematology can abnormality. We will check vitamin B12 and folic acid, iron panel studies. If iron panel studies normal patient may benefit from Epogen. REVIEW OF SYSTEMS CONSTITUTIONAL: Denies fever, chills, or fatigue. HEAD/FACE: No signs of trauma. EENT: Denies eye pain, blurred vision, double vision, or light sensitivity. RESPIRATORY: Denies shortness of breath, cough, wheezing CARDIOVASCULAR: Denies chest pain, palpitation, syncope GASTROINTESTINAL/ABDOMINAL: Denies abdominal pain, constipation, diarrhea, nausea or vomiting GENITOURINARY: Denies dysuria or hematuria. MUSCULOSKELETAL: Denies joint pain, tenderness, or trauma. INTEGUMENTARY: Denies rash or itchiness NEUROLOGICAL/PSYCH: Denies anxiety, depression, heat or cold intolerance. PHYSICAL EXAM EYES: Anicteric. Pupils equal and reactive. HENT: No oral thrush seen, moist Oral mucosa NECK: Supple, no JVD or thyromegaly. LUNGS: Good air entry. No rales, no rhonchi. CARDIOVASCULAR: S1, S2 regular. No murmur heard. ABDOMEN: Soft, non tender, bowel sounds present, no organomegaly CENTRAL NERVOUS SYSTEM: Awake, alert, oriented x 3. No focal deficits. SKIN: No rashes, no swelling. LYMPHATICS: No peripheral lymphadenopathy MUSCULOSKELETAL: No joint swelling, erythema or tenderness. EXTREMITIES: No cyanosis or clubbing BACK: No deformity, no pressure ulcer. GENITOURINARY: No dysuria or hematuria Vital Signs (last 8hr) Date Time Temp Pulse Resp B/P (MAP) Pulse Ox O2 Delivery O2 Flow Rate FiO2 09/25/24 11:22 97.9 82 20 137/92 100 Room Air 09/25/24 08:05 98.4 64 20 139/75 100 Room Air LABS: Laboratory: Test 09/25/24 05:54 09/25/24 04:28 09/23/24 19:36 Range/Units White Blood Count 3.3 L 4.8-10.8 K/uL Red Blood Count 2.70 L 4.50-6.20 MIL/uL Hemoglobin 10.1 L 14.0-18.0 g/dL Hematocrit 30.1 L 42-54 % Mean Corpuscular Volume 111.5 H 79-99 fL Mean Corpuscular Hemoglobin 37.4 H 27.0-33.0 pg Mean Corpuscular Hemoglobin Concent 33.6 32.0-36.0 g/dL Red Cell Distribution Width 12.2 11.0-15.5 % Platelet Count 117 L 130-400 K/uL Mean Platelet Volume 11.3 H 7.5-10.5 fL Nucleated Red Blood Cells 0.0 0.0-0.19 % Sodium Level 139 136-145 mmol/L Potassium Level 3.5 3.5-5.1 mmol/L Chloride Level 103 101-111 mmol/L Carbon Dioxide Level 30 21-32 mmol/L Blood Urea Nitrogen 14 7-18 mg/dL Creatinine 1.1 0.5-1.3 mg/dL Glomerular Filtration Rate Calc 69 >90 mL/min Random Glucose 78 70-105 mg/dL Total Calcium 8.6 8.5-10.1 mg/dL Magnesium Level 1.30 L 1.80-2.40 mg/dL Whole Blood Glucose 104 70-110 MG/DL DIAGNOSTICS / RADIOLOGY: [place] [address] IMAGING REPORT Signed PATIENT: GERI MAHARAJ MR#: [id number] : 1945 SEX: M AGE: 79 LOCATION: [facility] ORDER 2300 STATUS: ADM IN REPORT#: [id number] SERVICE 0600 REASON: pain ORDERING PHYSICIAN: TAWANDA LE MD PROCEDURE: ABDRUQLTD - US ABDOMINAL RUQ\LTD EXAMINATION: ULTRASOUND OF THE ABDOMEN (LIMITED) WITH COLOR DOPPLER. CLINICAL HISTORY: Swelling in legs. Pain. COMPARISON: None. TECHNIQUE: Real-time grayscale ultrasound images of the abdomen. In addition, color Doppler is medically necessary to perform in order to evaluate vascularity and blood flow. FINDINGS: Liver: Bulky in caliber, the right hepatic lobe measures 18.5 cm in the craniocaudal dimension. There is increased echogenicity of the hepatic parenchyma. There is no focal hepatic abnormality or intrahepatic biliary ductal dilatation. There is normal spectral Doppler of the main portal vein (PSV is 17 cm/s). The left lobe is obscured by overlying bowel gas. Gallbladder: Within normal limits with normal wall thickness (0.2 cm). No hyperemia or pericholecystic free fluid. There is no cholelithiasis. Common bile duct is obscured by overlying bowel gas. Pancreas: Obscured by overlying bowel gas. The right kidney is normal in caliber, the right kidney measures 11.2 x 4.1 x 3.8 cm in craniocaudal, AP, and transverse dimensions respectively. There is normal renal cortical thickness, and cortical echogenicity. There is no renal calculus or hydronephrosis. There is a simple cortical cyst that measures 4.8 x 4.2 x 4.1 cm in the right renal mid pole. IMPRESSION: Hepatomegaly with hepatic steatosis. Right renal simple cortical cyst. /[place] DICTATED BY: HORTENCIA NUÑEZ Jr., MD DATE: 09/25/24943 ELECTRONICALLY SIGNED BY: HORTENCIA NUÑEZ Jr., MD DATE: 09/25/24943 [place] [address] IMAGING REPORT Signed PATIENT: GERI MAHARAJ MR#: [id number] : 1945 SEX: M AGE: 79 LOCATION: [facility] ORDER 52 STATUS: ADM IN REPORT#: [id number] SERVICE 41 REASON: LOWER BACK PAIN ORDERING PHYSICIAN: TAWANDA LE MD PROCEDURE: L SPN WO - MR SPINAL CANAL, LUMBAR WO CON EXAM: MR Lumbar Spine Without Intravenous Contrast. CLINICAL HISTORY: Low back pain. TECHNIQUE: Magnetic resonance images of the lumbar spine in multiple planes. CONTRAST: None. COMPARISON: None. FINDINGS: For this examination, spinal levels were labeled assuming five non-rib bearing, lumbar-type vertebrae with the inferior labeled L5. Suspected right L3 laminectomy. No acute fracture. Severe levoscoliosis. Straightening of the expected lumbar lordosis reflects paraspinal muscle spasm. Multilevel spondylosis is evident by marginal osteophytes and facet joint arthropathy. Multilevel disc desiccation and degenerative disc height reduction noted, more pronounced at the L5-S1 level. Normal vertebral body heights. Modic type II changes in the contiguous endplates at the L1-L2 and L2-L3 levels. Conus medullaris terminates at the T12 level. No abnormal epidural masses. Moderate atrophy of the paraspinal muscles. Mild subcutaneous edema in the lower back. Large simple cortical cysts noted in bilateral kidneys. Individual spinal levels are described as follows: T12-L1: 4 mm left predominant disc osteophyte complex bulge causing mild indentation on the anterior thecal sac. No neural foraminal or lateral recess stenosis. L1-L2: 4 mm left predominant disc osteophyte complex bulge causing mild indentation on the anterior thecal sac. No neural foraminal or lateral recess stenosis. L2-L3: 4 mm right predominant disc osteophyte complex bulge and facet joint arthropathy causing mild indentation on the anterior thecal sac and mild right foraminal narrowing. No lateral recess stenosis. L3-L4: 5 mm right predominant disc osteophyte complex bulge and facet joint arthropathy causing mild indentation on the anterior thecal sac and moderate right foraminal narrowing with compression of the exiting right L3 nerve root. No lateral recess stenosis. L4-L5: 5 mm left predominant disc osteophyte complex bulge and facet joint arthropathy causing mild indentation on the anterior thecal sac, mild bilateral lateral recess narrowing with abutment of the traversing left L5 nerve root, and mild left foraminal narrowing. L5-S1: 5 mm left predominant disc osteophyte complex bulge and facet joint arthropathy causing mild indentation on the anterior thecal sac, mild left lateral recess narrowing with abutment of the traversing left S1 nerve root, and mild left foraminal narrowing with abutment of the exiting left L5 nerve root. IMPRESSION: Suspected right L3 laminectomy. Recommend correlation with the history. Severe levoscoliosis. Straightening of the expected lumbar lordosis reflects paraspinal muscle spasm. Moderate to severe multilevel spondylosis and degenerative disc changes. Modic type II changes in the contiguous endplates at the L1-L2 and L2-L3 levels. Mild indentation on the anterior thecal sac and moderate right foraminal narrowing with compression of the exiting right L3 nerve root at the L3-L4 level. Mild indentation on the anterior thecal sac, mild bilateral lateral recess narrowing with abutment of the traversing left L5 nerve root, and mild left foraminal narrowing at the L4-L5 level. Mild indentation on the anterior thecal sac, mild left lateral recess narrowing with abutment of the traversing left S1 nerve root, and mild left foraminal narrowing with abutment of the exiting left L5 nerve root at the L5-S1 level. /[place] DICTATED BY: HORTENCIA NUÑEZ Jr., MD DATE: 09/22/242152 ELECTRONICALLY SIGNED BY: HORTENCIA NUÑEZ Jr., MD DATE: 09/22/242152 [place] [address] IMAGING REPORT Signed PATIENT: GERI MAHARAJ MR#: [id number] : 1945 SEX: M AGE: 79 LOCATION: [facility] ORDER 38 STATUS: ADM IN REPORT#: [id number] SERVICE 36 REASON: r/o DVT ORDERING PHYSICIAN: MARSHA ACUÑA PROCEDURE: VENOUS STEPHAN - US VENOUS DOPPLER BILATERAL EXAMINATION: SPECTRAL DOPPLER ULTRASOUND EXAMINATION OF THE BILATERAL LOWER EXTREMITY VEINS. CLINICAL HISTORY: Right leg DVT, on blood thinners. COMPARISON: Bilateral lower extremity venous doppler dated 09/04/2024. TECHNIQUE: Real-time ultrasound scan of the veins of the bilateral lower extremity with color Doppler flow, spectral waveform analysis and compression. FINDINGS: DEEP VEINS: Right: The common femoral and mid and distal superficial femoral veins are echolucent and compressible. There is normal color Doppler flow throughout. The visualized calf veins appear patent. The right proximal superficial femoral and popliteal veins are partially compressible with echogenic content. There is flow on augmentation. Left: The common femoral, superficial femoral, and popliteal veins are echolucent and compressible. There is normal color Doppler flow throughout. The visualized calf veins appear patent. SUPERFICIAL VEINS: The greater saphenous veins are patent and compressible. SOFT TISSUES: No popliteal fossa cyst or other abnormalities. IMPRESSION: Partial deep vein thrombosis in the right proximal superficial femoral and popliteal veins. In the prior ultrasound, there was thrombosis only in the superficial femoral vein. Interval appearance of partial thrombosis in the popliteal vein. No deep venous thrombosis evident in the reminder of the bilateral lower extremity.No superficial thrombophlebitis in the bilateral lower extremity. /[place] DICTATED BY: ABEL ALMANZAR MD DATE: 09/23/24800 ELECTRONICALLY SIGNED BY: ABEL ALMANZAR MD DATE: 09/23/24800 [place] [id number] IMAGING REPORT Signed PATIENT: GERI MAHARAJ MR#: [id number] : 1945 SEX: M AGE: 79 LOCATION: [facility] ORDER 27 STATUS: ADM IN REPORT#: [id number] SERVICE 3 REASON: chf ORDERING PHYSICIAN: TAWANDA LE MD PROCEDURE: ECHO CMP - ECHO 2-D COMPLETE APPROVED REPORT EXAM: Two-dimensional and M-mode echocardiogram with Doppler and color Doppler. INDICATION ICD: Congestive heart failure 2D Dimensions RVDd 4.4 cm LVEF(%) 54.8 (>50%) LVED Vol(simp.) 83.0 mL IVSd 1.2 (0.7-1.1cm) FS(%) 28 % LVES Vol(simp.) 39.0 mL LVDd 4.8 (3.8-5.6cm) LA (2D) 4.9 (1.6-4.0cm) LVEF(%, simp.) 53 % PWd 1.3 (0.7-1.1cm) Ao Root(2D) 3.7 (2.0-3.7cm) LA ESV INDEX (BP) 43.48 mL/m2 IVSs 1.3 cm LVOT diam 2.6 (1.8-2.4cm) LVDs 3.4 (2.5-4.0cm) PWs 1.8 cm Deformation Strain Apical 4 -13.7 % Apical 2 -11.6 % Apical 3 -19.7 % Global Strain -15.0 % M-Mode Dimensions EPSS 0.7 cm LA (MM) 4.6 (1.6-4.0cm) Ao Root(MM) 3.3 (2.0-3.7cm) Aortic Valve AoV Vmax 1.2 m/s Ao Peak GR 5.9 mmHg LVOT Vmax 1.0 m/s AoV VTI 0.2 m Ao Mean GR 3.2 mmHg LVOT VTI 0.20 m LARRY (VMAX) 4.34 cm2 LARRY (VTI) 6.0 cm2 Mitral Valve MV E Vmax 54.4 cm/s DECEL Time 211 ms MV A Vmax 74.7 cm/s P 1/2 T 48 ms E/A ratio 0.7 MVA (PHT) 4.6 cm2 TDI E/E' Medial 8.8 E/E' Lateral 4.5 Medial E' Peak V 6.19 cm/s Lateral E' Peak V 12.14 cm/s Pulmonary Valve PV Vmax 1.2 m/s PV VTI 0.19 m PV Mean GR 3.3 mmHg PV Peak GR 6.1 mmHg Tricuspid Valve TR Vmax 1.1 m/s RVSP 4.6 mmHg TR Peak GR 4.6 mmHg Left Ventricle The left ventricle is normal size. GLS -15.0% Septal bounce is present. Mild left ventricular hypertrophy LVEF is 50-55%. Diastolic function is indeterminate. Right Ventricle The right ventricle is normal size. The right ventricular systolic function is normal. Atria The left atrium is moderately dilated. The right atrium size is normal. Aortic Valve Aortic valve is trileaflet and calcified however opens well. Trace aortic regurgitation is present. There is no aortic valvular stenosis. Mitral Valve The mitral valve is normal in structure. There is no mitral valve regurgitation noted. There is no mitral valve stenosis. Tricuspid Valve The tricuspid valve is normal in structure. There is trace of tricuspid valve regurgitation noted. Pulmonic Valve Pulmonic valve is not well visualized. There is trivial pulmonic valvular regurgitation. Great Vessels The aortic root is normal in size. IVC is not well visualized. Pericardium There is no pericardial effusion. Other Information Quality : Technically difficult study due to body habitus Rhythm : NSR Conclusion LVEF is 50-55%. Diastolic function is indeterminate. Septal bounce is present. Mild left ventricular hypertrophy Left atrium is moderately dilated. Aortic valve is trileaflet and calcified however opens well. DICTATED BY: DARRON JAMES DO DATE: 09/22/24 1139 ELECTRONICALLY SIGNED BY: DARRON JAMES DO DATE: 09/22/24 1235 [place] [address] IMAGING REPORT Signed PATIENT: GERI MAHARAJ MR#: [id number] : 1945 SEX: M AGE: 79 LOCATION: [facility] ORDER 27 STATUS: ADM IN [facility] REPORT#: [id number] SERVICE 25 REASON: chf ORDERING PHYSICIAN: TAWANDA LE MD PROCEDURE: CXR2VW - CHEST 2VWS EXAM: CR Chest, 1 view CLINICAL HISTORY: Congestive heart failure. COMPARISON: None provided. FINDINGS: The left CP angle is excluded from the image. No large pleural effusion or pneumothorax. The lungs show no infiltrates or other acute findings. Mild atherosclerotic aorta. The cardiomediastinal silhouette is within normal limits. No acute osseous abnormality. IMPRESSION: No acute cardiopulmonary process is evident. /[place] DICTATED BY: HORTENCIA NUÑEZ Jr., MD DATE: 09/22/24 0350 ELECTRONICALLY SIGNED BY: HORTENCIA NUÑEZ Jr., MD DATE: 09/22/24 0350 ASSESSMENT: Pancytopenia Right lower extremity DVT On anticoagulation with Eliquis Suspected lumbar radiculopathy PLAN: Pancytopenia WBC 3.3, RBC 2.70, hemoglobin 10.1 Peripheral blood smear obtained today which did not show any pathology. We will check for folic acid and vitamin B12. Also order iron panel studies. If iron panel studies are normal patient may benefit from Epogen. Right lower extremity DVT Venous Doppler ultrasound on 09/22/2024 showed partial DVT in the right proximal superficial femoral and popliteal veins. Continue Eliquis5 mg p.o. b.i.d.. Suspected lumbar radiculopathy Continue baclofen 10 mg b.i.d. ATTESTATION BY PHYSICIAN I attest that I was physically present to evaluate the patient and I reviewed and discussed the case with the Resident and agree with the Resident's findings and plans of care as documented above with modifications. Case discussed with resident on the date stated at the beginning of note. Patient was first seen and evaluated by me during this hospitalization. Aliyah Crenshaw MD, KRUPALI P MD Sep 25, 2024 16:19 ALIYAH CRENSHAW MD Sep 25, 2024 16:55
--- NOTE | 2024-09-25 16:39 | NUR ---
PER DR REY MALIK ALREADY SPOKE WITH PT. NO SX NEEDED AT THIS POINT.
[2024-09-25 16:46] VITALS: BP 138/96; PULSE 80; RESP 16; TEMP 97.6
--- NOTE | 2024-09-25 17:24 | PN ---
INFECTIOUS DISEASE PROGRESS NOTE Date of Service: Sep 25, 2024 SUBJECTIVE: Patient was seen at bedside in room 410. Patient is awake, alert and oriented x3. Continues on Eliquis for DVT to the right lower extremity. Physical therapy has evaluated patient. Edema and redness to the lower extremities is resolving. Case management to evaluate for referral to [facility] inpatient rehab. We will continue to follow patient's care. PHYSICAL EXAM EYES: Anicteric. Pupils equal and reactive. HENT: No oral thrush seen, moist Oral mucosa. NECK: Supple, no JVD or thyromegaly. LUNGS: Good air entry. No rales, no rhonchi. CARDIOVASCULAR: S1, S2 regular. No murmur heard. ABDOMEN: Soft, non tender, bowel sounds present, no organomegaly. CENTRAL NERVOUS SYSTEM: Awake, alert, oriented x 3. SKIN: No rashes, no swelling. LYMPHATICS: No peripheral lymphadenopathy MUSCULOSKELETAL: No joint swelling, erythema or tenderness. EXTREMITIES: No cyanosis or clubbing. Bilateral lower extremity edema and cellulitis. BACK: No deformity, no pressure ulcer. Chronic back pain. GENITOURINARY: No dysuria or hematuria Vital Sign (Last 12 Hours) 09/25/24 09/25/24 09/25/24 08:05 11:22 16:46 Temp 98.4 97.9 97.5 Pulse 64 82 80 Resp 20 20 16 B/P (MAP) 139/75 137/92 138/96 Pulse Ox 100 100 99 O2 Delivery Room Air Room Air Room Air Intake & Output (last 24hrs) 09/24/24 09/24/24 09/25/24 14:59 22:59 06:59 Intake Total 900 ml 800 ml Output Total 500 ml Balance 400 ml 800 ml LABS: Laboratory: Test 09/25/24 05:54 09/25/24 04:28 09/23/24 19:36 Range/Units White Blood Count 3.3 L 4.8-10.8 K/uL Red Blood Count 2.70 L 4.50-6.20 MIL/uL Hemoglobin 10.1 L 14.0-18.0 g/dL Hematocrit 30.1 L 42-54 % Mean Corpuscular Volume 111.5 H 79-99 fL Mean Corpuscular Hemoglobin 37.4 H 27.0-33.0 pg Mean Corpuscular Hemoglobin Concent 33.6 32.0-36.0 g/dL Red Cell Distribution Width 12.2 11.0-15.5 % Platelet Count 117 L 130-400 K/uL Mean Platelet Volume 11.3 H 7.5-10.5 fL Nucleated Red Blood Cells 0.0 0.0-0.19 % Sodium Level 139 136-145 mmol/L Potassium Level 3.5 3.5-5.1 mmol/L Chloride Level 103 101-111 mmol/L Carbon Dioxide Level 30 21-32 mmol/L Blood Urea Nitrogen 14 7-18 mg/dL Creatinine 1.1 0.5-1.3 mg/dL Glomerular Filtration Rate Calc 69 >90 mL/min Random Glucose 78 70-105 mg/dL Total Calcium 8.6 8.5-10.1 mg/dL Magnesium Level 1.30 L 1.80-2.40 mg/dL Whole Blood Glucose 104 70-110 MG/DL ASSESSMENT: Bilateral lower extremity edema, resolving. Severe multilevel spondylosis. Right lower extremity Deep vein thrombosis. Possible lumbar radiculopathy. History of chronic back pain. Obesity. PLAN: Continue anticoagulation. Hematology been consulted. Neurosurgeon has been consulted. Continue diuretics. Continue GI prophylaxis. Continue pain management. Case management to evaluate patient for referral to [facility] inpatient rehab. This case was reviewed and discussed with my supervising physician and the above assessment and plan was formulated and agreed upon. ATTESTATION BY PHYSICIAN I have seen and examined the patient. I reviewed the documentation, medical decision making, and treatment plan as noted by the mid-level provider above. I agree with the findings and plan of care. TAWANDA LE MD, MIRTA L [facility] Sep 25, 2024 17:24
[2024-09-25 18:10] LABS: % IRON SATURATION 12.9 % (30-44); IRON, SERUM 28.0 mcg/dL (65-175)
[2024-09-25] MEDS: PoTASSium chl 10% ELIXIR 20MEQ 20 MEQ/15 ML UDCUP PO PRN (19:51)
[2024-09-25 20:00] VITALS: BP 120/74; PULSE 78; RESP 18; TEMP 98.6
[2024-09-26] VITALS (7 sets, daily range): BP systolic 108–142; BP diastolic 72–84; PULSE 67–77; RESP 18–20; TEMP 97.8–99.1; O2SAT 96
[2024-09-26 05:08] LABS: NUCLEATED RED BLOOD CELLS 0.0 % (0.0-0.19); PLATELET COUNT (AUTO) 112.0 K/uL (130-400); RED BLOOD CELL COUNT(AUTO) 2.63 MIL/uL (4.50-6.20); RED CELL DISTRIBUTION WIDTH 11.9 % (11.0-15.5); WHITE BLOOD COUNT (AUTO) 3.4 K/uL (4.8-10.8)
[2024-09-26 05:19] LABS: CREATININE 1.2 mg/dL (0.5-1.3); GLOMERULAR FILTR. RATE CALC 62.0 mL/min (>90); GLUCOSE,RANDOM 86.0 mg/dL (70-105); SODIUM SERUM 139.0 mmol/L (136-145); UREA NITROGEN, BLOOD 10.0 mg/dL (7-18)
--- NOTE | 2024-09-26 06:55 | PN ---
MEDICAL MANAGEMENT FOLLOWUP NOTE DATE OF SERVICE: 09/24/2024. SUBJECTIVE: The patient is seen and examined at bedside today. The patient has no fever or chills. is better. Tolerating physical therapy. No depression. No suicidal ideation. no dysuria, no hematuria. The patient has been seen by cardiology and plans for possible stress test. The patient also was evaluated by neurosurgery who advised pain management evaluation for chronic back pain. OBJECTIVE: VITAL SIGNS: Temperature 97.5. EYES: No icterus. Pupils equal and reactive. HENT: No oral thrush seen. Moist oral mucosa. NECK: Supple. No JVD or thyromegaly. LUNGS: Good air entry. No rales, no rhonchi. CARDIOVASCULAR: S1, S2 regular. No murmur heard. ABDOMEN: Full, soft and nontender. Bowel sounds are present. CENTRAL NERVOUS SYSTEM: Awake, alert, oriented x 3. No focal deficits. SKIN: No rashes, no itchiness. LYMPHATIC: No peripheral lymphadenopathy. HEMATOLOGIC: No bleeding or petechial lesions seen. MUSCULOSKELETAL: No joint swelling, erythema or tenderness. EXTREMITIES: Edema of lower extremity is better. ASSESSMENT: A 79-year-old male with multiple problems, which include: * Hypertension. * Chronic back pain. * Deep venous thrombosis. * Obesity. * Dehydration. * Leg edema. PLAN: * Continue Eliquis. * Continue nutritional support. * Continue Lasix. * Monitor electrolytes. * Continue GI prophylaxis. * The patient will be followed up closely. TID: [id number] RECEIPT: [id number]
--- NOTE | 2024-09-26 11:21 | NUR ---
CM NOTE/[facility] CM spoke to [place] with [facility]. States patient has been medically accepted. Requesting results of emilia scan to accept for transfer today. CM escalated study with director. Patient will need to be transferred prior to 3 pm today. Otherwise, transfer will need to be scheduled for tomorrow. CM updated Dr. Morales and primary nurse with above.
--- NOTE | 2024-09-26 13:10 | PN ---
PROGRESS NOTE Date of Service: Sep 26, 2024 Time of Service: 13:02 SUBJECTIVE: This is a 79-year-old male medical problem had come to the hospital due to lower extremity edema bilaterally. The patient has been just recently diagnosed with DVT by Dr. Crenshaw. Patient is currently on Eliquis 5 mg p.o. b.i.d.. No acute events overnight. His bilateral lower extremity swelling seems to be improving. Patient denies any new complaints today. His labs showed WBC 3.4, RBC 2.63 and hemoglobin dropped to 9.8 from 10.1, hematocrit 29.5, MCV 112.2. Iron panel studies showed iron 28, TIBC 216, saturation 12.9%. Vitamin B12 1281 and folic acid > 20 Patient had Lexiscan stress test yesterday and the results are pending. REVIEW OF SYSTEMS CONSTITUTIONAL: Denies fever, chills, or fatigue. HEAD/FACE: No signs of trauma. EENT: Denies eye pain, blurred vision, double vision, or light sensitivity. RESPIRATORY: Denies shortness of breath, cough, wheezing CARDIOVASCULAR: Denies chest pain, palpitation, syncope GASTROINTESTINAL/ABDOMINAL: Denies abdominal pain, constipation, diarrhea, nausea or vomiting GENITOURINARY: Denies dysuria or hematuria. MUSCULOSKELETAL: Denies joint pain, tenderness, or trauma. INTEGUMENTARY: Denies rash or itchiness NEUROLOGICAL/PSYCH: Denies anxiety, depression, heat or cold intolerance. PHYSICAL EXAM EYES: Anicteric. Pupils equal and reactive. HENT: No oral thrush seen, moist Oral mucosa NECK: Supple, no JVD or thyromegaly. LUNGS: Good air entry. No rales, no rhonchi. CARDIOVASCULAR: S1, S2 regular. No murmur heard. ABDOMEN: Soft, non tender, bowel sounds present, no organomegaly CENTRAL NERVOUS SYSTEM: Awake, alert, oriented x 3. No focal deficits. SKIN: No rashes, no swelling. LYMPHATICS: No peripheral lymphadenopathy MUSCULOSKELETAL: Bilateral lower extremity edema. No joint swelling, erythema or tenderness. EXTREMITIES: No cyanosis or clubbing BACK: No deformity, no pressure ulcer. GENITOURINARY: No dysuria or hematuria Vital Signs (last 8hr) Date Time Temp Pulse Resp B/P (MAP) Pulse Ox O2 Delivery O2 Flow Rate FiO2 09/26/24 11:53 97.9 75 18 108/74 97 Room Air 09/26/24 08:00 98.2 74 18 134/84 96 Room Air LABS: Laboratory: Test 09/26/24 04:55 09/25/24 17:08 Range/Units White Blood Count 3.4 L 4.8-10.8 K/uL Red Blood Count 2.63 L 4.50-6.20 MIL/uL Hemoglobin 9.8 L 14.0-18.0 g/dL Hematocrit 29.5 L 42-54 % Mean Corpuscular Volume 112.2 H 79-99 fL Mean Corpuscular Hemoglobin 37.3 H 27.0-33.0 pg Mean Corpuscular Hemoglobin Concent 33.2 32.0-36.0 g/dL Red Cell Distribution Width 11.9 11.0-15.5 % Platelet Count 112 L 130-400 K/uL Mean Platelet Volume 10.8 H 7.5-10.5 fL Nucleated Red Blood Cells 0.0 0.0-0.19 % Sodium Level 139 136-145 mmol/L Potassium Level 4.4 3.5-5.1 mmol/L Chloride Level 103 101-111 mmol/L Carbon Dioxide Level 30 21-32 mmol/L Blood Urea Nitrogen 10 7-18 mg/dL Creatinine 1.2 0.5-1.3 mg/dL Glomerular Filtration Rate Calc 62 >90 mL/min Random Glucose 86 70-105 mg/dL Total Calcium 9.1 8.5-10.1 mg/dL Magnesium Level 1.80 1.80-2.40 mg/dL Iron Level 28 L 65-175 mcg/dL Total Iron Binding Capacity 216 L 250-450 mcg/dL Percent Iron Saturation 12.9 L 30-44 % Vitamin B12 Level 1281 H 193-986 pg/mL Folic Acid (LAB) > 20.00 H 2-20 ng/mL DIAGNOSTICS / RADIOLOGY: [place] [address] [address] IMAGING REPORT Signed PATIENT: GERI MAHARAJ MR#: [id number] : 1945 SEX: M AGE: 79 LOCATION: [facility] ORDER 99 STATUS: ADM IN REPORT#: [id number] SERVICE 06 REASON: pain ORDERING PHYSICIAN: TAWANDA LE MD PROCEDURE: ABDRUQLTD - US ABDOMINAL RUQ\LTD EXAMINATION: ULTRASOUND OF THE ABDOMEN (LIMITED) WITH COLOR DOPPLER. CLINICAL HISTORY: Swelling in legs. Pain. COMPARISON: None. TECHNIQUE: Real-time grayscale ultrasound images of the abdomen. In addition, color Doppler is medically necessary to perform in order to evaluate vascularity and blood flow. FINDINGS: Liver: Bulky in caliber, the right hepatic lobe measures 18.5 cm in the craniocaudal dimension. There is increased echogenicity of the hepatic parenchyma. There is no focal hepatic abnormality or intrahepatic biliary ductal dilatation. There is normal spectral Doppler of the main portal vein (PSV is 17 cm/s). The left lobe is obscured by overlying bowel gas. Gallbladder: Within normal limits with normal wall thickness (0.2 cm). No hyperemia or pericholecystic free fluid. There is no cholelithiasis. Common bile duct is obscured by overlying bowel gas. Pancreas: Obscured by overlying bowel gas. The right kidney is normal in caliber, the right kidney measures 11.2 x 4.1 x 3.8 cm in craniocaudal, AP, and transverse dimensions respectively. There is normal renal cortical thickness, and cortical echogenicity. There is no renal calculus or hydronephrosis. There is a simple cortical cyst that measures 4.8 x 4.2 x 4.1 cm in the right renal mid pole. IMPRESSION: Hepatomegaly with hepatic steatosis. Right renal simple cortical cyst. /[place] DICTATED BY: HORTENCIA NUÑEZ Jr., MD DATE: 09/25/24943 ELECTRONICALLY SIGNED BY: HORTENCIA NUÑEZ Jr., MD DATE: 09/25/[address] [address] IMAGING REPORT Signed PATIENT: GERI MAHARAJ MR#: [id number] : 1945 SEX: M AGE: 79 LOCATION: [facility] ORDER 52 STATUS: ADM IN REPORT#: [id number] SERVICE 41 REASON: LOWER BACK PAIN ORDERING PHYSICIAN: TAWANDA LE MD PROCEDURE: L SPN WO - MR SPINAL CANAL, LUMBAR WO CON EXAM: MR Lumbar Spine Without Intravenous Contrast. CLINICAL HISTORY: Low back pain. TECHNIQUE: Magnetic resonance images of the lumbar spine in multiple planes. CONTRAST: None. COMPARISON: None. FINDINGS: For this examination, spinal levels were labeled assuming five non-rib bearing, lumbar-type vertebrae with the inferior labeled L5. Suspected right L3 laminectomy. No acute fracture. Severe levoscoliosis. Straightening of the expected lumbar lordosis reflects paraspinal muscle spasm. Multilevel spondylosis is evident by marginal osteophytes and facet joint arthropathy. Multilevel disc desiccation and degenerative disc height reduction noted, more pronounced at the L5-S1 level. Normal vertebral body heights. Modic type II changes in the contiguous endplates at the L1-L2 and L2-L3 levels. Conus medullaris terminates at the T12 level. No abnormal epidural masses. Moderate atrophy of the paraspinal muscles. Mild subcutaneous edema in the lower back. Large simple cortical cysts noted in bilateral kidneys. Individual spinal levels are described as follows: T12-L1: 4 mm left predominant disc osteophyte complex bulge causing mild indentation on the anterior thecal sac. No neural foraminal or lateral recess stenosis. L1-L2: 4 mm left predominant disc osteophyte complex bulge causing mild indentation on the anterior thecal sac. No neural foraminal or lateral recess stenosis. L2-L3: 4 mm right predominant disc osteophyte complex bulge and facet joint arthropathy causing mild indentation on the anterior thecal sac and mild right foraminal narrowing. No lateral recess stenosis. L3-L4: 5 mm right predominant disc osteophyte complex bulge and facet joint arthropathy causing mild indentation on the anterior thecal sac and moderate right foraminal narrowing with compression of the exiting right L3 nerve root. No lateral recess stenosis. L4-L5: 5 mm left predominant disc osteophyte complex bulge and facet joint arthropathy causing mild indentation on the anterior thecal sac, mild bilateral lateral recess narrowing with abutment of the traversing left L5 nerve root, and mild left foraminal narrowing. L5-S1: 5 mm left predominant disc osteophyte complex bulge and facet joint arthropathy causing mild indentation on the anterior thecal sac, mild left lateral recess narrowing with abutment of the traversing left S1 nerve root, and mild left foraminal narrowing with abutment of the exiting left L5 nerve root. IMPRESSION: Suspected right L3 laminectomy. Recommend correlation with the history. Severe levoscoliosis. Straightening of the expected lumbar lordosis reflects paraspinal muscle spasm. Moderate to severe multilevel spondylosis and degenerative disc changes. Modic type II changes in the contiguous endplates at the L1-L2 and L2-L3 levels. Mild indentation on the anterior thecal sac and moderate right foraminal narrowing with compression of the exiting right L3 nerve root at the L3-L4 level. Mild indentation on the anterior thecal sac, mild bilateral lateral recess narrowing with abutment of the traversing left L5 nerve root, and mild left foraminal narrowing at the L4-L5 level. Mild indentation on the anterior thecal sac, mild left lateral recess narrowing with abutment of the traversing left S1 nerve root, and mild left foraminal narrowing with abutment of the exiting left L5 nerve root at the L5-S1 level. /[place] DICTATED BY: HORTENCIA NUÑEZ Jr., MD DATE: 09/22/242152 ELECTRONICALLY SIGNED BY: HORTENCIA NUÑEZ Jr., MD DATE: 09/22/242152 [place] [id number] IMAGING REPORT Signed PATIENT: GERI MAHARAJ MR#: [id number] : 1945 SEX: M AGE: 79 LOCATION: [facility] ORDER 38 STATUS: ADM IN REPORT#: [id number] SERVICE 36 REASON: r/o DVT ORDERING PHYSICIAN: MARSHA ACUÑA VAN HELPER PROCEDURE: VENOUS STEPHAN - US VENOUS DOPPLER BILATERAL EXAMINATION: SPECTRAL DOPPLER ULTRASOUND EXAMINATION OF THE BILATERAL LOWER EXTREMITY VEINS. CLINICAL HISTORY: Right leg DVT, on blood thinners. COMPARISON: Bilateral lower extremity venous doppler dated 09/04/2024. TECHNIQUE: Real-time ultrasound scan of the veins of the bilateral lower extremity with color Doppler flow, spectral waveform analysis and compression. FINDINGS: DEEP VEINS: Right: The common femoral and mid and distal superficial femoral veins are echolucent and compressible. There is normal color Doppler flow throughout. The visualized calf veins appear patent. The right proximal superficial femoral and popliteal veins are partially compressible with echogenic content. There is flow on augmentation. Left: The common femoral, superficial femoral, and popliteal veins are echolucent and compressible. There is normal color Doppler flow throughout. The visualized calf veins appear patent. SUPERFICIAL VEINS: The greater saphenous veins are patent and compressible. SOFT TISSUES: No popliteal fossa cyst or other abnormalities. IMPRESSION: Partial deep vein thrombosis in the right proximal superficial femoral and popliteal veins. In the prior ultrasound, there was thrombosis only in the superficial femoral vein. Interval appearance of partial thrombosis in the popliteal vein. No deep venous thrombosis evident in the reminder of the bilateral lower extremity.No superficial thrombophlebitis in the bilateral lower extremity. /[place] DICTATED BY: ABEL ALMANZAR MD DATE: 09/23/24800 ELECTRONICALLY SIGNED BY: ABEL ALMANZAR MD DATE: 09/23/[address] [address] IMAGING REPORT Signed PATIENT: GERI MAHARAJ MR#: [id number] : 1945 SEX: M AGE: 79 LOCATION: [facility] ORDER 27 STATUS: ADM IN REPORT#: [id number] SERVICE 3 REASON: chf ORDERING PHYSICIAN: TAWANDA LE MD PROCEDURE: ECHO CMP - ECHO 2-D COMPLETE APPROVED REPORT EXAM: Two-dimensional and M-mode echocardiogram with Doppler and color Doppler. INDICATION ICD: Congestive heart failure 2D Dimensions RVDd 4.4 cm LVEF(%) 54.8 (>50%) LVED Vol(simp.) 83.0 mL IVSd 1.2 (0.7-1.1cm) FS(%) 28 % LVES Vol(simp.) 39.0 mL LVDd 4.8 (3.8-5.6cm) LA (2D) 4.9 (1.6-4.0cm) LVEF(%, simp.) 53 % PWd 1.3 (0.7-1.1cm) Ao Root(2D) 3.7 (2.0-3.7cm) LA ESV INDEX (BP) 43.48 mL/m2 IVSs 1.3 cm LVOT diam 2.6 (1.8-2.4cm) LVDs 3.4 (2.5-4.0cm) PWs 1.8 cm Deformation Strain Apical 4 -13.7 % Apical 2 -11.6 % Apical 3 -19.7 % Global Strain -15.0 % M-Mode Dimensions EPSS 0.7 cm LA (MM) 4.6 (1.6-4.0cm) Ao Root(MM) 3.3 (2.0-3.7cm) Aortic Valve AoV Vmax 1.2 m/s Ao Peak GR 5.9 mmHg LVOT Vmax 1.0 m/s AoV VTI 0.2 m Ao Mean GR 3.2 mmHg LVOT VTI 0.20 m LARRY (VMAX) 4.34 cm2 LARRY (VTI) 6.0 cm2 Mitral Valve MV E Vmax 54.4 cm/s DECEL Time 211 ms MV A Vmax 74.7 cm/s P 1/2 T 48 ms E/A ratio 0.7 MVA (PHT) 4.6 cm2 TDI E/E' Medial 8.8 E/E' Lateral 4.5 Medial E' Peak V 6.19 cm/s Lateral E' Peak V 12.14 cm/s Pulmonary Valve PV Vmax 1.2 m/s PV VTI 0.19 m PV Mean GR 3.3 mmHg PV Peak GR 6.1 mmHg Tricuspid Valve TR Vmax 1.1 m/s RVSP 4.6 mmHg TR Peak GR 4.6 mmHg Left Ventricle The left ventricle is normal size. GLS -15.0% Septal bounce is present. Mild left ventricular hypertrophy LVEF is 50-55%. Diastolic function is indeterminate. Right Ventricle The right ventricle is normal size. The right ventricular systolic function is normal. Atria The left atrium is moderately dilated. The right atrium size is normal. Aortic Valve Aortic valve is trileaflet and calcified however opens well. Trace aortic reg urgitation is present. There is no aortic valvular stenosis. Mitral Valve The mitral valve is normal in structure. There is no mitral valve regurgitation noted. There is no mitral valve stenosis. Tricuspid Valve The tricuspid valve is normal in structure. There is trace of tricuspid valve regurgitation noted. Pulmonic Valve Pulmonic valve is not well visualized. There is trivial pulmonic valvular regurgitation. Great Vessels The aortic root is normal in size. IVC is not well visualized. Pericardium There is no pericardial effusion. Other Information Quality : Technically difficult study due to body habitus Rhythm : NSR Conclusion LVEF is 50-55%. Diastolic function is indeterminate. Septal bounce is present. Mild left ventricular hypertrophy Left atrium is moderately dilated. Aortic valve is trileaflet and calcified however opens well. DICTATED BY: DARRON JAMES DO DATE: 09/22/24 1139 ELECTRONICALLY SIGNED BY: DARRON JAMES DO DATE: 09/22/24 1235 [place] [address] IMAGING REPORT Signed PATIENT: GERI MAHARAJ MR#: [id number] : 1945 SEX: M AGE: 79 LOCATION: [facility] ORDER 27 STATUS: ADM IN [facility] REPORT#: [id number] SERVICE 25 REASON: chf ORDERING PHYSICIAN: TAWANDA LE MD PROCEDURE: CXR2VW - CHEST 2VWS EXAM: CR Chest, 1 view CLINICAL HISTORY: Congestive heart failure. COMPARISON: None provided. FINDINGS: The left CP angle is excluded from the image. No large pleural effusion or pneumothorax. The lungs show no infiltrates or other acute findings. Mild atherosclerotic aorta. The cardiomediastinal silhouette is within normal limits. No acute osseous abnormality. IMPRESSION: No acute cardiopulmonary process is evident. /[place] DICTATED BY: HORTENCIA NUÑEZ Jr., MD DATE: 09/22/24349 ELECTRONICALLY SIGNED BY: HORTENCIA NUÑEZ Jr., MD DATE: 09/22/24349 ASSESSMENT: Pancytopenia Right lower extremity DVT On anticoagulation with Eliquis Suspected lumbar radiculopathy PLAN: Pancytopenia WBC 3.4, RBC 2.63, hemoglobin 9.8 Peripheral blood smear obtained yesterday which did not show any pathology. Vitamin B12 1281 and folic acid > 20 Iron Panel studies revealed iron 28, TIBC 216 and saturation 12.9%. We will give him Venofer 200 mg IV while he is here. Right lower extremity DVT Venous Doppler ultrasound on 09/22/2024 showed partial DVT in the right proximal superficial femoral and popliteal veins. Continue Eliquis 5 mg p.o. b.i.d.. Suspected lumbar radiculopathy Continue baclofen 10 mg b.i.d. ATTESTATION BY PHYSICIAN I have seen and examined the patient. I reviewed the documentation, medical decision making, and treatment plan as noted by the resident provider above. I agree with the findings and plan of care. Aliyah Crenshaw MD, KRUPALI P MD Sep 26, 2024 13:10 ALIYAH CRENSHAW MD Sep 26, 2024 16:49
--- NOTE | 2024-09-26 14:20 | DS ---
Discharge Summary Hospital Course This is a 79-year-old male patient with history of chronic back pain, obesity, skin cancer, and osteoarthritis who presented to the hospital as direct admission from the doctor's office for evaluation of bilateral lower extremities edema and pain. The patient states he has been having chronic back pain for a long time. Recently had radiofrequency procedure done in [place] and I have been seeing the patient since then. The pain is localized to the lumbar area, radiating to the lower extremities. The patient claims now he is almost wheelchair bound. Denies fever or chills. No fall or trauma. No frequent urinary retention. The patient denies nausea. Denies palpitations or orthopnea. The patient is unable to lie flat in bed. BNP was 122. Troponin is negative. The patient was found with magnesium of 0.80 and was replaced. Venous Doppler done on admission was positive for DVT in the right proximal superficial femoral and popliteal veins. Diplomatic Interpreter/Translator was consulted patient was started on Eliquis. An MRI of the lumbar spine showed Severe levoscoliosis and Moderate to severe multilevel spondylosis. Patient has been referred to [facility] inpatient rehab. Cardiology was also consulted for concern of heart failure. Patient underwent stress test which was negative for ischemia. Patient will be discharged [facility] inpatient rehab today. FINAL DISCHARGE DIAGNOSIS: Bilateral lower extremity edema, resolving. Severe multilevel spondylosis. Right lower extremity Deep vein thrombosis. Possible lumbar radiculopathy. History of chronic back pain. Obesity. PLAN: Discharge patient to [facility] inpatient rehab unit today. Refer to medication reconciliation. This case was reviewed and discussed with my supervising physician and the above assessment and plan was formulated and agreed upon. ATTESTATION BY PHYSICIAN I have seen and examined the patient. I reviewed the documentation, medical decision making, and treatment plan as noted by the mid-level provider above. I agree with the findings and plan of care. TAWANDA LE MD, MIRTA L CUT ROLL MACHINE OFFBEARER Sep 26, 2024 14:20
--- NOTE | 2024-09-26 15:23 | NUR ---
CM NOTE CM spoke to Cici with [facility]. Advised that Dr. Morales has obtained a verbal report on emilia scan results from it field technician. States exam is normal. Per Cici, Dr. Holguin their medical lab specialist is unable to accept until official final results are reviewed. CM to send results once available. Plan for discharge tomorrow. CM updated Dr. Morales with above.
[2024-09-27] VITALS: BP 148/84; PULSE 75; RESP 20; TEMP 97.7
[2024-09-27 04:00] VITALS: BP 152/54; PULSE 68; RESP 20; TEMP 98.4
[2024-09-27 08:00] VITALS: BP 141/82; PULSE 79; RESP 16; TEMP 98.6
[2024-09-27 09:22] VITALS: O2SAT 97
--- NOTE | 2024-09-27 10:16 | PN ---
LATE ENTRY FOR 09/26/2024 HPI pt was seen and examined today no acute overnight changes Vitals/Labs Vital Signs Date Time Temp Pulse Resp B/P (MAP) Pulse Ox O2 Delivery O2 Flow Rate FiO2 09/27/24 09:22 97 Room Air* 0 21 09/27/24 08:00 98.6 79 16 141/82 Medications Current Medications Magnesium Sulfate 50 ml @ 0 mls/hr PROTOCOL IV Last administered on 09/26/24at 06:45; Start 09/21/24 at 16:30; Stop 10/21/24 at 16:29 Tramadol HCl 50 mg Q6H PRN PO Last administered on 09/26/24at 19:02; Start 09/21/24 at 20:00; Stop 09/26/24 at 19:59; Status DC Docusate Sodium 100 mg BID PO Last administered on 09/27/24at 09:18; Start 09/21/24 at 21:00; Stop 09/28/24 at 21:00 Magnesium Sulfate 50 ml @ 0 mls/hr PROTOCOL ONCE IV Last administered on 09/21/24at 21:42; Start 09/21/24 at 20:00; Stop 09/21/24 at 20:02; Status DC Ondansetron HCl 4 mg Q6H PRN IVP Last administered on 09/22/24at 08:00; Start 09/21/24 at 23:30; Stop 10/21/24 at 23:29 Apixaban 2.5 mg BID PO Last administered on 09/23/24at 08:02; Start 09/22/24 at 09:00; Stop 09/23/24 at 16:02; Status DC Baclofen 10 mg BID PO Last administered on 09/27/24at 09:17; Start 09/22/24 at 09:00; Stop 10/22/24 at 08:59 Famotidine 40 mg DAILY PO Last administered on 09/24/24at 10:46; Start 09/22/24 at 09:00; Stop 09/25/24 at 06:11; Status DC Furosemide 20 mg BID PO Last administered on 09/26/24at 20:43; Start 09/22/24 at 09:00; Stop 10/22/24 at 08:59 Lisinopril 2.5 mg DAILY PO Last administered on 09/27/24at 09:18; Start 09/22/24 at 09:00; Stop 10/22/24 at 08:59 Apixaban 5 mg BID PO Last administered on 09/27/24at 09:18; Start 09/23/24 at 21:00; Stop 10/23/24 at 20:59 Famotidine 20 mg DAILY PO Last administered on 09/27/24at 09:17; Start 09/25/24 at 09:00; Stop 10/22/24 at 08:59 Potassium Chloride 100 ml @ 100 mls/hr AD PRN IV; Start 09/25/24 at 06:30; Stop 10/25/24 at 06:29 Potassium Chloride 20 meq AD PRN PO Last administered on 09/25/24at 21:56; Start 09/25/24 at 06:30; Stop 10/25/24 at 06:29 Potassium Chloride 20 meq AD PRN PO; Start 09/25/24 at 06:30; Stop 10/25/24 at 06:29 Regadenoson 0.4 mg STK-MED ONCE IVP Last administered on 09/25/24at 09:47; Start 09/25/24 at 07:33; Stop 09/25/24 at 07:33; Status DC Iron Sucrose 200 mg ONCE ONCE IV Last administered on 09/26/24at 18:54; Start 09/26/24 at 15:00; Stop 09/26/24 at 15:01; Status DC ASSESSMENT: * Diastolic CHF, which is now resolved. He is on p.o. Lasix. * Normal ejection fraction. * DVT, right lower extremity. The patient is on full dose anticoagulation, oral. RECOMMENDATIONS: * We will continue the same medications. His blood pressure has been controlled. He is on Lasix p.o. stress test shows no ischemia or infarction pt to f/u with us outpt DAT HOPKINS PAC Sep 27, 2024 10:16
[2024-09-27 12:00] VITALS: BP 129/77; PULSE 79; RESP 16; TEMP 98.5
--- NOTE | 2024-09-27 12:35 | NUR ---
CM NOTE CM forwarded requested clinical to [facility]. CM spoke to [place] and states patient has been approved for transfer today. CM updated Dr. Morales with approval. Received orders for d/c. CM updated charge nurse Willie. Primary nurse unavailable at the time. Charge nurse and primary nurse aware that patient will need to be transferred prior to 3 pm. CM arranged EMS.
--- NOTE | 2024-09-27 13:34 | NUR ---
PT WAS EDUCATED ON THE IMPORTANCE OF MEDICATION COMPLICANCE. PT IV WAS REMOVED WITHOUT COMPLICATIONS. SECURED WIT 4X4 AND TEGADERM PT IS ON ELIQUIS. PT VERBALIZED UNDERSTANDING DISCHARGE EDUCATION. REPORT WAS GIVEN TO MADHURI INIGUEZ IN IRU. PT IS CURRENTLY WAITING ON AMBULANCE TRANSPORTATION. NO S/S OF DISTRESS.
--- NOTE | 2024-09-27 13:55 | NUR ---
PT WAS TRANSPORTED TO [facility] VIA [facility] WITH AMBULANCE. NO S/S OF DISTRESS.
--- NOTE | 2024-09-27 14:12 | NUR ---
CM NOTE/EMS CM spoke to patient regarding EMS transportation. Explained that CM cannot guarantee Medicare will cover transport. Patient verbalized understanding and asked to continue with EMS transport and bill Medicare. CM updated [facility] with [facility].
--- NOTE | 2024-09-27 14:51 | HMCSR ---
APPROVED REPORT Height: 6 ft 0in Weight: 214 lbs TEST INDICATIONS HEART FAILURE The imaging protocol used to acquire images was Rest Tc-99m/stress Tc-99m 1 day Consent: The procedure was explained and understood by the patient. Informerd consent was witnessed Ian RICO RN First, low dose rest was performed then high dose stress. RESTING DATA: The resting ekg shows: NSR Rest SPECT myocardial perfusion imaging was performed in supine position minutes following the intra venous injection of 11 mCi of Tc-99 Sestamibi. Time of rest injection: 07:15: Date: 09/25/2024 PHARMACOLOGIC STRESS: Pharmacologic stress test was performed by injecting regadenoson 0.4 mg IV push followed by the intra venous injection of 27 mCi of Tc-99 Sestamibi. Time of stress injection: 09:16: Date: 09/25/2024 Heart Rate at time of stress injection: 68 bpm. Gated Stress SPECT was performed 60 minutes after stress injection. The images were gated to evaluate regional wall motion and calculate left ventricular ejection fracti on. STRESS DETAILS Reason for Termination: Infusion complete Stress Symptoms: Dyspnea Max HR Achieved: 105 bpm % of APMHR Achieved: 86 Max Blood Pressure: 156/93 mmHg Stress ECG: NSR LV PERFUSION There is mildly Decreased tracer uptake in the moderate sized area of the inferoseptal wall which is predominantly similar in both stress and rest images suggestive of from a fixed defect in this territ [place]. Apical thinning artifact is also present. No evidence of ischemia noted. EF 51%. Low risk stress test as above Conclusion There is mildly Decreased tracer uptake in the moderate sized area of the inferoseptal wall which is predominantly similar in both stress and rest images suggestive of from a fixed defect in this territ [place]. Apical thinning artifact is also present. No evidence of ischemia noted. EF 51%. Low risk stress test as above
--- NOTE | 2024-09-27 21:23 | DS ---
Discharge Summary Hospital Course This is a 79-year-old male patient with history of chronic back pain, obesity, skin cancer, and osteoarthritis who presented to the hospital as direct admission from the doctor's office for evaluation of bilateral lower extremities edema and pain. The patient states he has been having chronic back pain for a long time. Recently had radiofrequency procedure done in [place] and I have been seeing the patient since then. The pain is localized to the lumbar area, radiating to the lower extremities. The patient claims now he is almost wheelchair bound. Denies fever or chills. No fall or trauma. No frequent urinary retention. The patient denies nausea. Denies palpitations or orthopn ea. The patient is unable to lie flat in bed. BNP was 122. Troponin is negative. The patient was found with magnesium of 0.80 and was replaced. Venous Doppler done on admission was positive for DVT in the right proximal superficial femoral and popliteal veins. Radio Mechanic Apprentice was consulted patient was started on Eliquis. An MRI of the lumbar spine showed Severe levoscoliosis and Moderate to severe multilevel spondylosis. Patient has been referred to [facility] inpatient rehab. Cardiology was also consulted for concern of heart failure. Patient underwent stress test which was negative for ischemia. Patient will be discharged [facility] inpatient rehab today. FINAL DISCHARGE DIAGNOSIS: Bilateral lower extremity edema, resolving. Severe multilevel spondylosis. Right lower extremity Deep vein thrombosis. Possible lumbar radiculopathy. History of chronic back pain. Obesity. PLAN: Discharge patient to [facility] inpatient rehab unit today. Refer to medication reconciliation. This case was reviewed and discussed with my supervising physician and the above assessment and plan was formulated and agreed upon. ATTESTATION BY PHYSICIAN I have seen and examined the patient. I reviewed the documentation, medical decision making, and treatment plan as noted by the mid-level provider above. I agree with the findings and plan of care. TAWANDA LE MD, MIRTA L [facility] Sep 27, 2024 21:23
--- NOTE | 2024-09-27 21:27 | PN ---
INFECTIOUS DISEASE PROGRESS NOTE Date of Service: Sep 26, 2024 SUBJECTIVE: Patient was seen at bedside in room 410. Patient is awake, alert and oriented x3. Patient has been referred to [facility] inpatient rehab and has been approved. Patient underwent stress test which per preliminary report it was negative for ischemia. Per case management report however, [facility] patient without the stress test official report and the discharge was canceled. Leach Cell Operator have been informed. Patient will be discharged to [facility] inpatient rehab tomorrow. PHYSICAL EXAM EYES: Anicteric. Pupils equal and reactive. HENT: No oral thrush seen, moist Oral mucosa. NECK: Supple, no JVD or thyromegaly. LUNGS: Good air entry. No rales, no rhonchi. CARDIOVASCULAR: S1, S2 regular. No murmur heard. ABDOMEN: Soft, non tender, bowel sounds present, no organomegaly. CENTRAL NERVOUS SYSTEM: Awake, alert, oriented x 3. SKIN: No rashes, no swelling. LYMPHATICS: No peripheral lymphadenopathy MUSCULOSKELETAL: No joint swelling, erythema or tenderness. EXTREMITIES: No cyanosis or clubbing. Bilateral lower extremity edema and cellulitis. BACK: No deformity, no pressure ulcer. Chronic back pain. GENITOURINARY: No dysuria or hematuria Vital Sign (Last 12 Hours) 09/27/24 12:00 Temp 98.4 Pulse 79 Resp 16 B/P (MAP) 129/77 Pulse Ox 98 O2 Delivery Room Air Intake & Output (last 24hrs) 09/26/24 09/26/24 09/27/24 15:00 23:00 07:00 Intake Total 240 ml Output Total 100 ml 450 ml 850 ml Balance 140 ml -450 ml -850 ml LABS: Laboratory: Test 09/26/24 04:55 Range/Units White Blood Count 3.4 L 4.8-10.8 K/uL Red Blood Count 2.63 L 4.50-6.20 MIL/uL Hemoglobin 9.8 L 14.0-18.0 g/dL Hematocrit 29.5 L 42-54 % Mean Corpuscular Volume 112.2 H 79-99 fL Mean Corpuscular Hemoglobin 37.3 H 27.0-33.0 pg Mean Corpuscular Hemoglobin Concent 33.2 32.0-36.0 g/dL Red Cell Distribution Width 11.9 11.0-15.5 % Platelet Count 112 L 130-400 K/uL Mean Platelet Volume 10.8 H 7.5-10.5 fL Nucleated Red Blood Cells 0.0 0.0-0.19 % Sodium Level 139 136-145 mmol/L Potassium Level 4.4 3.5-5.1 mmol/L Chloride Level 103 101-111 mmol/L Carbon Dioxide Level 30 21-32 mmol/L Blood Urea Nitrogen 10 7-18 mg/dL Creatinine 1.2 0.5-1.3 mg/dL Glomerular Filtration Rate Calc 62 >90 mL/min Random Glucose 86 70-105 mg/dL Total Calcium 9.1 8.5-10.1 mg/dL Magnesium Level 1.80 1.80-2.40 mg/dL ASSESSMENT: Bilateral lower extremity edema, resolving. Severe multilevel spondylosis. Right lower extremity Deep vein thrombosis. Possible lumbar radiculopathy. History of chronic back pain. Obesity. PLAN: Continue anticoagulation. Hematology following patient. Neurosurgeon evaluated patient. Continue diuretics. Continue GI prophylaxis. Continue pain management. Patient will be discharged to [facility] inpatient rehab tomorrow after obtaining the stress test official report. This case was reviewed and discussed with my supervising physician and the above assessment and plan was formulated and agreed upon. ATTESTATION BY PHYSICIAN I have seen and examined the patient. I reviewed the documentation, medical decision making, and treatment plan as noted by the mid-level provider above. I agree with the findings and plan of care. TAWANDA LE MD, MIRTA L [facility] Sep 27, 2024 21:27
--- NOTE | 2024-09-27 21:50 | PN ---
This is a 79-year-old male medical problem had come to the hospital due to lower extremity edema bilaterally. The patient has been just recently diagnosed with DVT by Dr. Crenshaw. Patient is currently on Eliquis 5 mg p.o. b.i.d.. No acute events overnight. His bilateral lower extremity swelling seems to be improving. Patient denies any new complaints today. His labs showed WBC 3.4, RBC 2.63 and hemoglobin dropped to 9.8 from 10.1, hematocrit 29.5, MCV 112.2. Iron panel studies showed iron 28, TIBC 216, saturation 12.9%. Vitamin B12 1281 and folic acid > 20 Patient had Lexiscan stress test yesterday and the results are pending. REVIEW OF SYSTEMS CONSTITUTIONAL: Denies fever, chills, or fatigue. HEAD/FACE: No signs of trauma. EENT: Denies eye pain, blurred vision, double vision, or light sensitivity. RESPIRATORY: Denies shortness of breath, cough, wheezing CARDIOVASCULAR: Denies chest pain, palpitation, syncope GASTROINTESTINAL/ABDOMINAL: Denies abdominal pain, constipation, diarrhea, nausea or vomiting GENITOURINARY: Denies dysuria or hematuria. MUSCULOSKELETAL: Denies joint pain, tenderness, or trauma. INTEGUMENTARY: Denies rash or itchiness NEUROLOGICAL/PSYCH: Denies anxiety, depression, heat or cold intolerance. PHYSICAL EXAM EYES: Anicteric. Pupils equal and reactive. HENT: No oral thrush seen, moist Oral mucosa NECK: Supple, no JVD or thyromegaly. LUNGS: Good air entry. No rales, no rhonchi. CARDIOVASCULAR: S1, S2 regular. No murmur heard. ABDOMEN: Soft, non tender, bowel sounds present, no organomegaly CENTRAL NERVOUS SYSTEM: Awake, alert, oriented x 3. No focal deficits. SKIN: No rashes, no swelling. LYMPHATICS: No peripheral lymphadenopathy MUSCULOSKELETAL: Bilateral lower extremity edema. No joint swelling, erythema or tenderness. EXTREMITIES: No cyanosis or clubbing BACK: No deformity, no pressure ulcer. GENITOURINARY: No dysuria or hematuria Assessment 1. Neutropenia 2. Anemia 3. Thrombocytopenia 4. Right lower extremity DVT with the patient have a clot to the proximal superficial femoral and popliteal vein. Lumbar radiculopathy Plan 1. Peripheral blood smear showed hypersegmented neutrophils. Patient to be on folic acid and vitamin B12 2. There is iron deficiency anemia with the patient should be started on IV iron. 3. No need for blood product transfusion 4. This patient to be continued on Eliquis 5 mg p.o. twice daily 5. Patient to follow-up with me in the next 2 weeks if discharged. Vitals/Labs Vital Signs Date Time Temp Pulse Resp B/P (MAP) Pulse Ox O2 Delivery O2 Flow Rate FiO2 09/27/24 12:00 98.4 79 16 129/77 98 Room Air 09/27/24 09:22 0 21 Medications Current Medications Magnesium Sulfate 50 ml @ 0 mls/hr PROTOCOL IV Last administered on 09/26/24at 06:45; Start 09/21/24 at 16:30; Stop 09/27/24 at 14:06; Status DC Tramadol HCl 50 mg Q6H PRN PO Last administered on 09/26/24at 19:02; Start 09/21/24 at 20:00; Stop 09/26/24 at 19:59; Status DC Docusate Sodium 100 mg BID PO Last administered on 09/27/24at 09:18; Start 09/21/24 at 21:00; Stop 09/27/24 at 14:06; Status DC Magnesium Sulfate 50 ml @ 0 mls/hr PROTOCOL ONCE IV Last administered on 09/21/24at 21:42; Start 09/21/24 at 20:00; Stop 09/21/24 at 20:02; Status DC Ondansetron HCl 4 mg Q6H PRN IVP Last administered on 09/22/24at 08:00; Start 09/21/24 at 23:30; Stop 09/27/24 at 14:06; Status DC Apixaban 2.5 mg BID PO Last administered on 09/23/24at 08:02; Start 09/22/24 at 09:00; Stop 09/23/24 at 16:02; Status DC Baclofen 10 mg BID PO Last administered on 09/27/24at 09:17; Start 09/22/24 at 09:00; Stop 09/27/24 at 14:06; Status DC Famotidine 40 mg DAILY PO Last administered on 09/24/24at 10:46; Start 09/22/24 at 09:00; Stop 09/25/24 at 06:11; Status DC Furosemide 20 mg BID PO Last administered on 09/26/24at 20:43; Start 09/22/24 at 09:00; Stop 09/27/24 at 14:06; Status DC Lisinopril 2.5 mg DAILY PO Last administered on 09/27/24at 09:18; Start 09/22/24 at 09:00; Stop 09/27/24 at 14:06; Status DC Apixaban 5 mg BID PO Last administered on 09/27/24at 09:18; Start 09/23/24 at 21:00; Stop 09/27/24 at 14:06; Status DC Famotidine 20 mg DAILY PO Last administered on 09/27/24at 09:17; Start 09/25/24 at 09:00; Stop 09/27/24 at 14:06; Status DC Potassium Chloride 100 ml @ 100 mls/hr AD PRN IV; Start 09/25/24 at 06:30; Stop 09/27/24 at 14:06; Status DC Potassium Chloride 20 meq AD PRN PO Last administered on 09/25/24at 21:56; Start 09/25/24 at 06:30; Stop 09/27/24 at 14:06; Status DC Potassium Chloride 20 meq AD PRN PO; Start 09/25/24 at 06:30; Stop 09/27/24 at 14:06; Status DC Regadenoson 0.4 mg STK-MED ONCE IVP Last administered on 09/25/24at 09:47; Start 09/25/24 at 07:33; Stop 09/25/24 at 07:33; Status DC Iron Sucrose 200 mg ONCE ONCE IV Last administered on 09/26/24at 18:54; Start 09/26/24 at 15:00; Stop 09/26/24 at 15:01; Status DC Pantoprazole Sodium 40 mg ONCE ONCE PO Last administered on 09/27/24at 13:24; Start 09/27/24 at 13:00; Stop 09/27/24 at 13:01; Status DC ALIYAH CRENSHAW MD Sep 27, 2024 21:50
== END 2024-09-27 14:00 | DRG 552 ==
LOC: EDH 12:21 → EDHIP 12:22 → UNDOADMIN 12:22 → EDHIP 13:38 → 4BH 22:36
PROVIDERS: ADMIT Internal Medicine Infectious Disease; ATTEND Internal Medicine Infectious Disease
PROC: 4A02XM4 Measurement of Cardiac Total Activity, External Approach (ICD-10-PCS; principal; 2024-09-25)
PROC: 3E073KZ Introduction of Other Diagnostic Substance into Coronary Artery, Percutaneous Approach (ICD-10-PCS; 2024-09-25)
DX: M54.16 Radiculopathy, lumbar region (principal); L03.116 Cellulitis of left lower limb; L03.115 Cellulitis of right lower limb; D61.818 Other pancytopenia; I50.30 Unspecified diastolic (congestive) heart failure; I82.431 Acute embolism and thrombosis of right popliteal vein; I82.411 Acute embolism and thrombosis of right femoral vein; M47.896 Other spondylosis, lumbar region; E66.9 Obesity, unspecified; E78.5 Hyperlipidemia, unspecified; E86.0 Dehydration; I11.0 Hypertensive heart disease with heart failure; K21.9 Gastro-esophageal reflux disease without esophagitis; I87.2 Venous insufficiency (chronic) (peripheral); Z96.641 Presence of right artificial hip joint; Z68.26 Body mass index [BMI] 26.0-26.9, adult; Z79.01 Long term (current) use of anticoagulants; Z99.3 Dependence on wheelchair; Z85.828 Personal history of other malignant neoplasm of skin
CPT/HCPCS: 36415; 71046; 72148; 76705; 78452; 80048; 80053; 82607; 82746; 82948; 83540; 83550; 83735; 83880; 84484; 85025; 85027; 85610; 85730; 93017; 93306; 93356; 93970; A9500; G0378; J1756; J2405; J2785; J3475